=== PATIENT | female | born 1960 | race Caucasian/White ===

== ENCOUNTER 2021-03-18 05:34 | Emergency (ER) | payer MEDICAID, OTHER ==
[2021-03-18] MEDS ORDERED: Sodium Chloride 0.9% 1,000 ML IV ONE (06:06)
[2021-03-18] MEDS ORDERED: LORazepam 2 MG/ML SDV IVPUSH STA (06:06)
--- NOTE | 2021-03-18 06:09 | EDM.PDOC ---
<Chavo Ye - Last Filed: 03/18/21 07:16> ED HPI GENERAL MEDICAL PROBLEM - General Chief Complaint: Abdominal Pain Stated Complaint: [facility] Time Seen by Provider: 03/18/21 05:53 Source of Information: Reports: Patient, RN Notes Reviewed History Limitations: Reports: Altered Mental Status - History of Present Illness INITIAL COMMENTS - FREE TEXT/NARRATIVE: Obtaining a history is not possible, as the patient is both physically and mentally agitated, speaking only a stream of consciousness and not answering any questions directly. I am told that she (or someone) called EMS stating that she was dyspneic with an occasional cough, however, when EMS arrived, she told him that she was having abdominal pain. Here in the ED, she complained of back pain with nausea and dry heaves. When I asked the patient what brings her to the ED, she stated "I was not feeling good", and that she developed diarrhea last night. She related that she is on her 3rd cancer - malignant melanoma, after first having endometrial cancer, followed by colon cancer. She stated that she had 4 feet of her colon removed, and I believe a hysterectomy, but that she has never received chemotherapy, because she refused it. Given her current mental condition, I would not rely on the accuracy of what she is saying at this time, and there are no prior medical records to rely on. At triage, the patient's initial BP was modestly depressed at 105/51. She is afebrile, with an oxygen saturation of 90% on room air. She is physically restless, constantly moving and rubbing or scratching her hands, legs, and scalp. Due to the patient's altered mental status, a PMHx, PSHx, SocHx, and recent ROS is unobtainable. It is unknown if the patient has a PCP or other provider. It is unknown if the patient has received a COVID vaccination or influenza vaccination this season. Back Pain Score (Numeric/FACES): 9 - Related Data Allergies Allergy/AdvReac Type Severity Reaction Status Date / Time aspirin Allergy Anaphylactic Verified 03/18/21 05:46 Shock Home Meds: Home Meds Acetaminophen/oxyCODONE [Percocet 325-10 MG] 1 tab PO TID 03/18/21 [History] Cyclobenzaprine [Flexeril] 10 mg PO TID 03/18/21 [History] Divalproex Sodium [Depakote] 500 mg PO BID 03/18/21 [History] Nitrofurantoin Monohyd/M-Cryst [Macrobid 100 mg Capsule] 100 mg PO BID #10 capsule 03/18/21 [Rx] Oxybutynin Chloride [Oxybutynin Chloride ER] 15 mg PO DAILY 03/18/21 [History] Pregabalin [Lyrica] 150 mg PO DAILY 03/18/21 [History] Promethazine [Phenergan] 25 mg PO Q8H PRN 03/18/21 [History] Propranolol [Inderal LA 24 Hr] 80 mg PO BEDTIME 03/18/21 [History] SUMAtriptan succinate [Imitrex] 4 mg SQ ASDIRECTED 03/18/21 [History] Past Medical History HEENT History: Reports: Other (See Below) (Endentulous) - Past Surgical History HEENT Surgical History: Reports: Oral Surgery (dental extractions) ED ROS GENERAL - Review of Systems Review Of Systems: Unable To Obtain Reason Not Obtained: AMS ED EXAM, GENERAL - Physical Exam Exam: See Below Exam Limited By: Physical Impairment (Mentally and physically agitated) General Appearance: Alert, Thin, Other (Disheveled) Eye Exam: Bilateral Eye: EOMI, Normal Inspection Ears: Normal External Exam, Hearing Grossly Normal Nose: Normal Inspection Throat/Mouth: Normal Inspection, Normal Lips, Normal Voice, No Airway Compromise Head: Atraumatic, Normocephalic Neck: Normal Inspection, Full Range of Motion Respiratory/Chest: No Respiratory Distress, Lungs Clear, Normal Breath Sounds, No Accessory Muscle Use Cardiovascular: Normal Peripheral Pulses, Regular Rate, Rhythm, No Edema, No Gallop, No JVD, No Murmur, No Rub Peripheral Pulses: 2+: Radial (L), Radial (R) GI/Abdominal: Normal Bowel Sounds, Soft, Non-Tender, No Organomegaly, No Distention, No Abnormal Bruit, No Mass Back Exam: Normal Inspection, Full Range of Motion, NT Extremities: Normal Inspection, Normal Range of Motion, No Pedal Edema, Normal Capillary Refill Neurological: Alert, No Motor/Sensory Deficits, Confused Psychiatric: Other (Mentally agitated) Skin Exam: Warm, Dry, Intact, Normal Color, No Rash Course - Re-Assessments/Exams Free Text/Narrative Re-Assessment/Exam: 03/18/21 06:07 The patient's presentation is highly suspicious for drug intoxication, particularly methamphetamine and/or bath salts. I have ordered an extensive work-up that includes numerous blood tests, a urinalysis, a urine drug screen, a swab for the SARS-CoV-2 virus and influenza A + B viruses, a portable chest x- ray, and an ECG. In the meantime, the patient will be treated with IV lorazepam in order to try to settle her down, and a bolus of IV fluid to address her hypotension. 03/18/21 06:43 Notified by Bhakti MATHUR that the IV lorazepam helped to settle the patient down a little bit, although she still took a swing at Kaelyn MATHUR. 03/18/21 06:53 Portable chest radiograph appears to be grossly normal. The cardiac silhouette is within normal limits. No pulmonary vascular congestion. No pleural effusions seen on this AP view. No focal infiltrate. No pneumothorax. Formal read per the Radiologist pending. 03/18/21 07:16 The patient's CBC is unremarkable. Her CMP is remarkable for slight hypokalemia 3.4, and modest hyperglycemia of 145, with the remainder of her CMP being unremarkable. Her magnesium level is within normal limits at 1.8. Her serum ketones are within normal limits at 0.05. Her CRP is undetectably low. Her troponin is undetectably low. Her pro-BNP is mildly elevated at 288. Her D-dimer is elevated at 1.04. Her salicylate level is within normal limits at 1.6. Her acetaminophen level is 0. Her EtOH level is 0.00. Her urinalysis is remarkable for 3+ occult blood with 40-50 RBCs, trace leukocyte esterase with 20-30 WBCs, nitrite positive with many bacteria, and 0-5 squamous epithelial cells. Her urine drug screen is positive for methamphetamine, amphetamine, and marijuana. Results of the patient's lactic acid level, swab for the SARS-CoV-2 virus and influenza A + B viruses, and ECG are still pending. Based on the above, I have ordered a urine culture, and will start the patient on nitrofurantoin. Case discussed with Dr. Aguilar, and care of the patient turned over to him at this time, for change of shift. Departure - Departure Disposition: Home, Self-Care 01 Clinical Impression: COVID-19 UTI (urinary tract infection) Qualifiers: Urinary tract infection type: site unspecified Hematuria presence: without hematuria Qualified Code(s): N39.0 - Urinary tract infection, site not specified - Discharge Information Prescriptions: Nitrofurantoin Monohyd/M-Cryst [Macrobid 100 mg Capsule] 100 mg PO BID #10 capsule Referrals: PCP,None [Primary Care Provider] - Chelsey Rubio MD [Physician] - 1 Week Forms: ED Department Discharge Additional Instructions: Drink plenty of fluids. Take the macrobid 2 times per day for 5 days. Use the inhaler 2 puffs every 6 hours as needed for shortness of breath. Please return if you are worse. Sepsis Event Note (ED) - Evaluation Sepsis Screening Result: No Definite Risk <Endy Aguilar - Last Filed: 03/18/21 09:25> Course - Vital Signs Last Recorded V/S: Last Vital Signs Temp 98.3 F 03/18/21 05:46 Pulse 86 03/18/21 05:46 Resp 20 03/18/21 05:46 BP 105/51 L 03/18/21 05:46 Pulse Ox 90 L 03/18/21 05:46 - Orders/Labs/Meds Orders: Active Orders 24 hr Category Date Time Status EKG Documentation Completion [RC] STAT Care 03/18/21 06:04 Active RT Post Treatment Assessment [RC] Click to Edit Care 03/18/21 08:48 Active RT Pre-Treatment Assessment [RC] Click to Edit Care 03/18/21 08:48 Active Vital Signs [RC] Q15M Care 03/18/21 08:47 Active CULTURE URINE [MREF] Stat Lab 03/18/21 06:20 Received Bamlanivimab 700 mg Med 03/18/21 08:47 Active Etesevimab [Etesevimab (EUA)] 1,400 mg Sodium Chloride 0.9% [Normal Saline] 100 ml IV ONETIME EPINEPHrine [Adrenalin] Med 03/18/21 08:47 Active 0.3 mg IM ASDIRECTED PRN Famotidine [Pepcid] Med 03/18/21 08:47 Active 20 mg IVPUSH ASDIRECTED PRN Sodium Chloride 0.9% [Saline Flush] Med 03/18/21 09:00 Active 30 ml FLUSH ASDIRECTED diphenhydrAMINE [Benadryl] Med 03/18/21 08:47 Active 50 mg IVPUSH ASDIRECTED PRN methylPREDNISolone Sod Succ [Solu-MEDROL] Med 03/18/21 08:47 Active 125 mg IVPUSH ASDIRECTED PRN Medication Orders Diphenhydramine HCl (Diphenhydramine 50 Mg/Ml Sdv) 50 mg IVPUSH ASDIRECTED PRN PRN Reason: hypersensitivity reaction Epinephrine HCl (Epinephrine 1 Mg/Ml Sdv) 0.3 mg IM ASDIRECTED PRN PRN Reason: hypersensitivity reaction Famotidine (Famotidine 20 Mg/2 Ml Sdv) 20 mg IVPUSH ASDIRECTED PRN PRN Reason: hypersensitivity reaction Bamlanivimab 700 mg/Etesevimab 1,400 mg/ Sodium Chloride 160 mls @ 310 mls/hr IV ONETIME ONE Stop: 03/18/21 09:17 Last Admin: 03/18/21 09:11 Dose: 310 mls/hr Documented by: HERMMIC Methylprednisolone Sodium Succinate (Methylprednisolone Sodium Succinate 125 Mg/2 Ml Sdv) 125 mg IVPUSH ASDIRECTED PRN PRN Reason: hypersensitivity reaction Sodium Chloride (Sodium Chloride 0.9% 10 Ml Syringe) 30 ml FLUSH ASDIRECTED [facility] Labs: Laboratory Tests 03/18/21 03/18/21 03/18/21 Range/Units 05:45 05:45 05:45 WBC 6.97 (3.98-10.04) K/mm3 RBC 4.50 (3.98-5.22) M/mm3 Hgb 13.3 (11.2-15.7) gm/dl Hct 41.7 (34.1-44.9) % MCV 92.7 (79.4-94.8) fl MCH 29.6 (25.6-32.2) pg MCHC 31.9 L (32.2-35.5) g/dl RDW Std Deviation 63.7 H (36.4-46.3) fL Plt Count 354 (182-369) K/mm3 MPV 9.8 (9.4-12.3) fl Neutrophils % (Manual) 44 (40-60) % Band Neutrophils % 5 (0-10) % Lymphocytes % (Manual) 47 H (20-40) % Atypical Lymphs % 0 % Monocytes % (Manual) 3 (2-10) % Eosinophils % (Manual) 1 (0.7-5.8) % Basophils % (Manual) 0 L (0.1-1.2) Platelet Estimate Adequate Plt Morphology Comment Normal Hypochromasia 1+ slight Anisocytosis 2+ moderate RBC Morph Comment Abnormal D-Dimer, Quantitative 1.04 H (0.19-0.50) mg/L Sodium 143 (136-145) mEq/L Potassium 3.4 L (3.5-5.1) mEq/L Chloride 106 (98-107) mEq/L Carbon Dioxide 25 (21-32) mEq/L Anion Gap 15.4 H (5-15) BUN 14 (7-18) mg/dL Creatinine 0.8 (0.55-1.02) mg/dL Est Cr Clr Drug Dosing 58.17 mL/min Estimated GFR (MDRD) > 60 (>60) mL/min BUN/Creatinine Ratio 17.5 (14-18) Glucose 145 H (70-99) mg/dL Lactic Acid (0.4-2.0) mmol/L Calcium 9.1 (8.5-10.1) mg/dL Magnesium 1.8 (1.8-2.4) mg/dL Total Bilirubin 0.3 (0.2-1.0) mg/dL AST 11 L (15-37) U/L ALT 12 L (14-59) U/L Alkaline Phosphatase 84 (46-116) U/L Troponin I < 0.017 (0.00-0.056) ng/mL C-Reactive Protein <0.2 (<1.0) mg/dL NT-Pro-B Natriuret Pep (0-125) pg/mL Total Protein 7.5 (6.4-8.2) g/dl Albumin 3.6 (3.4-5.0) g/dl Globulin 3.9 gm/dL Albumin/Globulin Ratio 0.9 L (1-2) Urine Color (Yellow) Urine Appearance (Clear) Urine pH (5.0-8.0) Ur Specific Whitmer (1.005-1.030) Urine Protein (Negative) Urine Glucose (UA) (Negative) Urine Ketones (Negative) Urine Occult Blood (Negative) Urine Nitrite (Negative) Urine Bilirubin (Negative) Urine Urobilinogen (0.2-1.0) Ur Leukocyte Esterase (Negative) U Hyaline Cast (Auto) (0-5) /lpf Urine RBC (0-5) /hpf Urine WBC (0-5) /hpf Ur Squamous Epith Cells (0-5) /hpf Urine Bacteria (FEW) /hpf Urine Mucus (FEW) /hpf Salicylates (2.8-20) mg/dL Urine Opiates Screen (XLFQXB=423) Ur Buprenorphine Scrn (CUTOFF=10) Ur Oxycodone Screen (YXN3UO=183) Urine Methadone Screen (BRSEGL=733) Ur Propoxyphene Screen (VFZEWR=134) Acetaminophen 0 L (10-30) ug/mL Ur Barbiturates Screen (VNHVLO=986) Ur Tricyclics Screen (OQEEOQ=752) Ur Phencyclidine Scrn (CUTOFF=25) Ur Amphetamine Screen (DFTRJM=931) U Methamphetamines Scrn (PDKERP=072) U Benzodiazepines Scrn (VRCPOZ=833) U Cocaine Metab Screen (OCTHDK=081) U Marijuana (THC) Screen (CUTOFF=50) Ethyl Alcohol 0.00 (0.00) gm% Ketones (0.0-0.3) mM SARS-CoV-2 RNA (MORTEZA) (NEGATIVE) 03/18/21 03/18/21 03/18/21 Range/Units 05:45 05:45 05:45 WBC (3.98-10.04) K/mm3 RBC (3.98-5.22) M/mm3 Hgb (11.2-15.7) gm/dl Hct (34.1-44.9) % MCV (79.4-94.8) fl MCH (25.6-32.2) pg MCHC (32.2-35.5) g/dl RDW Std Deviation (36.4-46.3) fL Plt Count (182-369) K/mm3 MPV (9.4-12.3) fl Neutrophils % (Manual) (40-60) % Band Neutrophils % (0-10) % Lymphocytes % (Manual) (20-40) % Atypical Lymphs % % Monocytes % (Manual) (2-10) % Eosinophils % (Manual) (0.7-5.8) % Basophils % (Manual) (0.1-1.2) Platelet Estimate Plt Morphology Comment Hypochromasia Anisocytosis RBC Morph Comment D-Dimer, Quantitative (0.19-0.50) mg/L Sodium (136-145) mEq/L Potassium (3.5-5.1) mEq/L Chloride (98-107) mEq/L Carbon Dioxide (21-32) mEq/L Anion Gap (5-15) BUN (7-18) mg/dL Creatinine (0.55-1.02) mg/dL Est Cr Clr Drug Dosing mL/min Estimated GFR (MDRD) (>60) mL/min BUN/Creatinine Ratio (14-18) Glucose (70-99) mg/dL Lactic Acid (0.4-2.0) mmol/L Calcium (8.5-10.1) mg/dL Magnesium (1.8-2.4) mg/dL Total Bilirubin (0.2-1.0) mg/dL AST (15-37) U/L ALT (14-59) U/L Alkaline Phosphatase (46-116) U/L Troponin I (0.00-0.056) ng/mL C-Reactive Protein (<1.0) mg/dL NT-Pro-B Natriuret Pep 288 H (0-125) pg/mL Total Protein (6.4-8.2) g/dl Albumin (3.4-5.0) g/dl Globulin gm/dL Albumin/Globulin Ratio (1-2) Urine Color (Yellow) Urine Appearance (Clear) Urine pH (5.0-8.0) Ur Specific Whitmer (1.005-1.030) Urine Protein (Negative) Urine Glucose (UA) (Negative) Urine Ketones (Negative) Urine Occult Blood (Negative) Urine Nitrite (Negative) Urine Bilirubin (Negative) Urine Urobilinogen (0.2-1.0) Ur Leukocyte Esterase (Negative) U Hyaline Cast (Auto) (0-5) /lpf Urine RBC (0-5) /hpf Urine WBC (0-5) /hpf Ur Squamous Epith Cells (0-5) /hpf Urine Bacteria (FEW) /hpf Urine Mucus (FEW) /hpf Salicylates 1.6 L (2.8-20) mg/dL Urine Opiates Screen (WYDLPQ=718) Ur Buprenorphine Scrn (CUTOFF=10) Ur Oxycodone Screen (VYK2NX=176) Urine Methadone Screen (BLEPBD=537) Ur Propoxyphene Screen (TIFXOZ=246) Acetaminophen (10-30) ug/mL Ur Barbiturates Screen (UBVAJN=822) Ur Tricyclics Screen (TESAIF=244) Ur Phencyclidine Scrn (CUTOFF=25) Ur Amphetamine Screen (VXVURQ=883) U Methamphetamines Scrn (ZAVJYG=149) U Benzodiazepines Scrn (NCRXOV=649) U Cocaine Metab Screen (WOGHFR=816) U Marijuana (THC) Screen (CUTOFF=50) Ethyl Alcohol (0.00) gm% Ketones 0.05 (0.0-0.3) mM SARS-CoV-2 RNA (MORTEZA) (NEGATIVE) 03/18/21 03/18/21 03/18/21 Range/Units 06:20 06:20 06:25 WBC (3.98-10.04) K/mm3 RBC (3.98-5.22) M/mm3 Hgb (11.2-15.7) gm/dl Hct (34.1-44.9) % MCV (79.4-94.8) fl MCH (25.6-32.2) pg MCHC (32.2-35.5) g/dl RDW Std Deviation (36.4-46.3) fL Plt Count (182-369) K/mm3 MPV (9.4-12.3) fl Neutrophils % (Manual) (40-60) % Band Neutrophils % (0-10) % Lymphocytes % (Manual) (20-40) % Atypical Lymphs % % Monocytes % (Manual) (2-10) % Eosinophils % (Manual) (0.7-5.8) % Basophils % (Manual) (0.1-1.2) Platelet Estimate Plt Morphology Comment Hypochromasia Anisocytosis RBC Morph Comment D-Dimer, Quantitative (0.19-0.50) mg/L Sodium (136-145) mEq/L Potassium (3.5-5.1) mEq/L Chloride (98-107) mEq/L Carbon Dioxide (21-32) mEq/L Anion Gap (5-15) BUN (7-18) mg/dL Creatinine (0.55-1.02) mg/dL Est Cr Clr Drug Dosing mL/min Estimated GFR (MDRD) (>60) mL/min BUN/Creatinine Ratio (14-18) Glucose (70-99) mg/dL Lactic Acid (0.4-2.0) mmol/L Calcium (8.5-10.1) mg/dL Magnesium (1.8-2.4) mg/dL Total Bilirubin (0.2-1.0) mg/dL AST (15-37) U/L ALT (14-59) U/L Alkaline Phosphatase (46-116) U/L Troponin I (0.00-0.056) ng/mL C-Reactive Protein (<1.0) mg/dL NT-Pro-B Natriuret Pep (0-125) pg/mL Total Protein (6.4-8.2) g/dl Albumin (3.4-5.0) g/dl Globulin gm/dL Albumin/Globulin Ratio (1-2) Urine Color Yellow (Yellow) Urine Appearance Cloudy H (Clear) Urine pH 5.5 (5.0-8.0) Ur Specific Whitmer > or = 1.030 (1.005-1.030) Urine Protein 3+ H (Negative) Urine Glucose (UA) Negative (Negative) Urine Ketones Trace H (Negative) Urine Occult Blood 3+ H (Negative) Urine Nitrite Positive H (Negative) Urine Bilirubin 1+ H (Negative) Urine Urobilinogen 0.2 (0.2-1.0) Ur Leukocyte Esterase Trace H (Negative) U Hyaline Cast (Auto) 20-30 H (0-5) /lpf Urine RBC 40-50 H (0-5) /hpf Urine WBC 20-30 H (0-5) /hpf Ur Squamous Epith Cells 0-5 (0-5) /hpf Urine Bacteria Many H (FEW) /hpf Urine Mucus Moderate H (FEW) /hpf Salicylates (2.8-20) mg/dL Urine Opiates Screen Negative (JLVDUN=628) Ur Buprenorphine Scrn Negative (CUTOFF=10) Ur Oxycodone Screen Negative (ZUO3GA=344) Urine Methadone Screen Negative (DLPPMM=745) Ur Propoxyphene Screen Negative (XICPQD=770) Acetaminophen (10-30) ug/mL Ur Barbiturates Screen Negative (BJNOFM=832) Ur Tricyclics Screen Negative (SSAXOI=372) Ur Phencyclidine Scrn Negative (CUTOFF=25) Ur Amphetamine Screen Presumptive positive H (LSPGXC=583) U Methamphetamines Scrn Presumptive positive H (KYJHFY=049) U Benzodiazepines Scrn Negative (ICNBQT=152) U Cocaine Metab Screen Negative (BAXRLB=574) U Marijuana (THC) Screen Presumptive positive H (CUTOFF=50) Ethyl Alcohol (0.00) gm% Ketones (0.0-0.3) mM SARS-CoV-2 RNA (MORTEZA) Positive H (NEGATIVE) 03/18/21 Range/Units 07:00 WBC (3.98-10.04) K/mm3 RBC (3.98-5.22) M/mm3 Hgb (11.2-15.7) gm/dl Hct (34.1-44.9) % MCV (79.4-94.8) fl MCH (25.6-32.2) pg MCHC (32.2-35.5) g/dl RDW Std Deviation (36.4-46.3) fL Plt Count (182-369) K/mm3 MPV (9.4-12.3) fl Neutrophils % (Manual) (40-60) % Band Neutrophils % (0-10) % Lymphocytes % (Manual) (20-40) % Atypical Lymphs % % Monocytes % (Manual) (2-10) % Eosinophils % (Manual) (0.7-5.8) % Basophils % (Manual) (0.1-1.2) Platelet Estimate Plt Morphology Comment Hypochromasia Anisocytosis RBC Morph Comment D-Dimer, Quantitative (0.19-0.50) mg/L Sodium (136-145) mEq/L Potassium (3.5-5.1) mEq/L Chloride (98-107) mEq/L Carbon Dioxide (21-32) mEq/L Anion Gap (5-15) BUN (7-18) mg/dL Creatinine (0.55-1.02) mg/dL Est Cr Clr Drug Dosing mL/min Estimated GFR (MDRD) (>60) mL/min BUN/Creatinine Ratio (14-18) Glucose (70-99) mg/dL Lactic Acid 1.5 (0.4-2.0) mmol/L Calcium (8.5-10.1) mg/dL Magnesium (1.8-2.4) mg/dL Total Bilirubin (0.2-1.0) mg/dL AST (15-37) U/L ALT (14-59) U/L Alkaline Phosphatase (46-116) U/L Troponin I (0.00-0.056) ng/mL C-Reactive Protein (<1.0) mg/dL NT-Pro-B Natriuret Pep (0-125) pg/mL Total Protein (6.4-8.2) g/dl Albumin (3.4-5.0) g/dl Globulin gm/dL Albumin/Globulin Ratio (1-2) Urine Color (Yellow) Urine Appearance (Clear) Urine pH (5.0-8.0) Ur Specific Whitmer (1.005-1.030) Urine Protein (Negative) Urine Glucose (UA) (Negative) Urine Ketones (Negative) Urine Occult Blood (Negative) Urine Nitrite (Negative) Urine Bilirubin (Negative) Urine Urobilinogen (0.2-1.0) Ur Leukocyte Esterase (Negative) U Hyaline Cast (Auto) (0-5) /lpf Urine RBC (0-5) /hpf Urine WBC (0-5) /hpf Ur Squamous Epith Cells (0-5) /hpf Urine Bacteria (FEW) /hpf Urine Mucus (FEW) /hpf Salicylates (2.8-20) mg/dL Urine Opiates Screen (USAQGI=095) Ur Buprenorphine Scrn (CUTOFF=10) Ur Oxycodone Screen (LCM3CI=521) Urine Methadone Screen (HCONLV=068) Ur Propoxyphene Screen (DKMNVH=653) Acetaminophen (10-30) ug/mL Ur Barbiturates Screen (WHXKKC=068) Ur Tricyclics Screen (PAINHY=723) Ur Phencyclidine Scrn (CUTOFF=25) Ur Amphetamine Screen (HCYWDB=719) U Methamphetamines Scrn (PWSPTM=250) U Benzodiazepines Scrn (ULOHNK=342) U Cocaine Metab Screen (EFUZXL=982) U Marijuana (THC) Screen (CUTOFF=50) Ethyl Alcohol (0.00) gm% Ketones (0.0-0.3) mM SARS-CoV-2 RNA (MORTEZA) (NEGATIVE) Meds: Medications Generic Name Dose Route Start Last Admin Trade Name Freq PRN Reason Stop Dose Admin Diphenhydramine HCl 50 mg 03/18/21 08:47 Diphenhydramine 50 Mg/Ml Sdv IVPUSH ASDIRECTED PRN hypersensitivity reaction Epinephrine HCl 0.3 mg 03/18/21 08:47 Epinephrine 1 Mg/Ml Sdv IM ASDIRECTED PRN hypersensitivity reaction Famotidine 20 mg 03/18/21 08:47 Famotidine 20 Mg/2 Ml Sdv IVPUSH ASDIRECTED PRN hypersensitivity reaction Bamlanivimab 700 mg/ 160 mls @ 310 mls/hr 03/18/21 08:47 03/18/21 09:11 Etesevimab 1,400 mg/ Sodium IV 03/18/21 09:17 310 mls/hr Chloride ONETIME ONE Administration Methylprednisolone Sodium Succinate 125 mg 03/18/21 08:47 Methylprednisolone Sodium Succinate 125 Mg/2 Ml Sdv IVPUSH ASDIRECTED PRN hypersensitivity reaction Sodium Chloride 30 ml 03/18/21 09:00 Sodium Chloride 0.9% 10 Ml Syringe FLUSH ASDIRECTED BRIDGETTE Discontinued Medications Generic Name Dose Route Start Last Admin Trade Name Freq PRN Reason Stop Dose Admin Albuterol 0 gm 03/18/21 08:48 Albuterol 6.7 Gm Inhaler INH 03/18/21 08:49 ONETIME ONE Sodium Chloride 1,000 mls @ 999 mls/hr 03/18/21 06:06 03/18/21 06:28 Normal Saline IV 03/18/21 07:06 999 mls/hr ONETIME ONE Administration Lorazepam 1 mg 03/18/21 06:06 03/18/21 06:28 Lorazepam 2 Mg/Ml Sdv IVPUSH 03/18/21 06:07 1 mg ONETIME STA Administration Nitrofurantoin Macrocrystals 100 mg 03/18/21 07:14 03/18/21 07:26 Nitrofurantoin Monohydrate/Macrocrystalline 100 Mg Cap PO 03/18/21 07:15 100 mg ONETIME STA Administration - Re-Assessments/Exams Free Text/Narrative Re-Assessment/Exam: 03/18/21 09:[address] Ye. The patient is alert and making sense. She is COVID 19 positive. She says "that is impossible I got the shot." I informed her that it is possible and usually patient's with the shot do better. I asked her about the positive meth and amphetamine screen. She does not know how that happened. She says there are some add characters in her building and they may have been smoking it. I talked to her about getting the monoclonal antibodies. I spoke with the patient to provide information about monoclonal antibody treatment. I offered them the Patient and Caregiver DARNELL REGEN-COV Fact Sheet to read and review. I stated the drug has been approved by an emergency use authorization (EUA} process and has not fully been FDA reviewed or approved. The patient meets the EUA requirements. I discussed there are other potential treatment options that are currently not FDA approved to treat COVID 19. Offered opportunity to ask questions and all questions were answered. The patient voiced understanding and agreed to proceed with treatment. The patient wanted to go ahead with the monoclonal antibodies. She also asked if she could get an inhaler. Hers ran out. I will also get her on macrobid for ther [place]. Departure - Departure Time of Disposition: 09:50 Condition: Good - Discharge Information *PRESCRIPTION DRUG MONITORING PROGRAM REVIEWED*: Not Applicable *COPY OF PRESCRIPTION DRUG MONITORING REPORT IN PATIENT REINALDO: Not Applicable Sepsis Event Note (ED) - Focused Exam Vital Signs: Vital Signs Temp Pulse Resp BP Pulse Ox 03/18/21 05:46 98.3 F 86 20 105/51 L 90 L - My Orders Last 24 Hours: My Active Orders 03/18/21 08:47 Vital Signs [RC] Q15M Bamlanivimab 700 mg Etesevimab [Etesevimab (EUA)] 1,400 mg Sodium Chloride 0.9% [Normal Saline] 100 ml IV ONETIME EPINEPHrine [Adrenalin] 0.3 mg IM ASDIRECTED PRN Famotidine [Pepcid] 20 mg IVPUSH ASDIRECTED PRN diphenhydrAMINE [Benadryl] 50 mg IVPUSH ASDIRECTED PRN methylPREDNISolone Sod Succ [Solu-MEDROL] 125 mg IVPUSH ASDIRECTED PRN 03/18/21 08:48 RT Post Treatment Assessment [RC] Click to Edit RT Pre-Treatment Assessment [RC] Click to Edit 03/18/21 09:00 Sodium Chloride 0.9% [Saline Flush] 30 ml FLUSH ASDIRECTED - Assessment/Plan Last 24 Hours: My Active Orders 03/18/21 08:47 Vital Signs [RC] Q15M Bamlanivimab 700 mg Etesevimab [Etesevimab (EUA)] 1,400 mg Sodium Chloride 0.9% [Normal Saline] 100 ml IV ONETIME EPINEPHrine [Adrenalin] 0.3 mg IM ASDIRECTED PRN Famotidine [Pepcid] 20 mg IVPUSH ASDIRECTED PRN diphenhydrAMINE [Benadryl] 50 mg IVPUSH ASDIRECTED PRN methylPREDNISolone Sod Succ [Solu-MEDROL] 125 mg IVPUSH ASDIRECTED PRN 03/18/21 08:48 RT Post Treatment Assessment [RC] Click to Edit RT Pre-Treatment Assessment [RC] Click to Edit 03/18/21 09:00 Sodium Chloride 0.9% [Saline Flush] 30 ml FLUSH ASDIRECTED
[2021-03-18 06:42] LABS: ACETAMINOPHEN 0 ug/mL (10-30)
[2021-03-18] MEDS ORDERED: Nitrofurantoin Monohydrate/Macrocrystalline 100 MG Cap PO STA (07:14)
--- NOTE | 2021-03-18 08:24 | CR ---
Chest: Portable view of the chest was obtained. Comparison: No prior chest imaging is available. Heart size and mediastinum are within normal limits. Lungs are clear with no acute parenchymal change. Bony structures show nothing acute. Impression: 1. Nothing acute is seen on portable chest x-ray. Diagnostic code #1
[2021-03-18] MEDS ORDERED: diphenhydrAMINE 50 MG/ML SDV IVPUSH PRN (08:47)
[2021-03-18] MEDS ORDERED: Famotidine 20 MG/2 ML SDV IVPUSH PRN (08:47)
[2021-03-18] MEDS ORDERED: Bamlanivimab 700 MG, ETESEVIMAB 1,400 MG in Sodium Chloride 0.9% 100 ML IV ONE (08:47)
[2021-03-18] MEDS ORDERED: methylPREDNISolone Sodium Succinate 125 MG/2 ML SDV IVPUSH PRN (08:47)
[2021-03-18] MEDS ORDERED: EPINEPHrine 1 MG/ML SDV IM PRN (08:47)
[2021-03-18] MEDS ORDERED: Albuterol 6.7 GM Inhaler INH ONE (08:48)
[2021-03-18] MEDS ORDERED: Sodium Chloride 0.9% 10 ML Syringe FLUSH SCH (09:00)
[2021-03-18] MEDS ORDERED: Ondansetron 4 MG/2 ML SDV IVPUSH ONE (11:15)
[2021-03-18] MEDS ORDERED: Loperamide 2 MG Cap PO ONE (11:15)
[2021-03-18] MEDS: Albuterol 6.7 GM Inhaler INH ONE ×2 (13:27→13:28)
== END 2021-03-18 12:30 | disposition home or self-care (01) ==
LOC: JD.ED 05:34
DX: U07.1 COVID-19 (principal); N39.0 Urinary tract infection, site not specified; Z88.8 Allergy status to other drugs, medicaments and biological substances
CPT/HCPCS: 36415; 71045; 80053; 80143; 80179; 80306; 80307; 81001; 82009; 83605; 83735; 83880; 84484; 85007; 85027; 85379; 86140; 87086; 87088; 87186; 87635; 87804; 96374; 96375; 99285; A9270; J2060; J2405; J7030; M0245; Q0245; U0002

== ENCOUNTER 2021-07-01 21:42 | Emergency (ER) | payer MEDICAID ==
[2021-07-01] MEDS ORDERED: FLU Vacc QS2021-22 36MOS UP/PF 60 MCG/0.5 ML Syringe IM ONE (22:30)
== END 2021-07-02 01:05 | disposition home or self-care (01) ==
LOC: JD.ED 21:42
DX: R04.0 Epistaxis (principal); R60.0 Localized edema; I10 Essential (primary) hypertension; J45.909 Unspecified asthma, uncomplicated; Z79.82 Long term (current) use of aspirin; Z88.0 Allergy status to penicillin; Z88.2 Allergy status to sulfonamides; Z72.0 Tobacco use; Z23 Encounter for immunization
CPT/HCPCS: 36415; 85014; 85018; 90686; 99284-25; G0008

== ENCOUNTER 2022-01-01 20:43 | Emergency (ER) | payer MEDICAID | END 2022-01-01 22:53 | disposition home or self-care (01) | LOC: JD.ED 20:43 | DX: S93.402A Sprain of unspecified ligament of left ankle, initial encounter (principal); I10 Essential (primary) hypertension; Z88.0 Allergy status to penicillin; Z88.2 Allergy status to sulfonamides; Z88.8 Allergy status to other drugs, medicaments and biological substances; W22.09XA Striking against other stationary object, initial encounter | CPT/HCPCS: 73610-26-LT; 73610-LT; 73630-26-LT; 73630-LT; 99282; 99283 ==

== ENCOUNTER 2022-04-24 06:34 | Inpatient (IN) | payer MEDICAID ==
[2022-04-24] MEDS ORDERED: Sodium Chloride 0.9% 10 ML Syringe FLUSH PRN (07:13)
[2022-04-24 07:32] LABS: CORONAVIRUS COVID-19 NAA NEGATIVE (NEGATIVE)
[2022-04-24] MEDS ORDERED: Albuterol/Ipratropium 3.0-0.5 MG/3 ML Neb Soln NEB ONE (07:46)
[2022-04-24] MEDS ORDERED: cefTRIAXone 1 GM in Sodium Chloride 0.9% 100 ML IV ONE (07:59)
[2022-04-24] MEDS ORDERED: Lactated Ringers 1,000 ML IV ONE (08:16)
[2022-04-24] MEDS ORDERED: methylPREDNISolone Sodium Succinate 125 MG/2 ML SDV IVPUSH ONE (09:01)
[2022-04-24] MEDS ORDERED: Lactated Ringers 500 ML IV ONE (09:29)
[2022-04-24] MEDS ORDERED: Lactated Ringers 1,000 ML ONE (09:31)
[2022-04-24] MEDS ORDERED: Lactated Ringers 1,000 ML IV SCH (14:00)
[2022-04-24] MEDS: Albuterol/Ipratropium 3.0-0.5 MG/3 ML Neb Soln NEB SCH ×2 (17:29→23:10)
[2022-04-24] MEDS ORDERED: LORazepam 2 MG/ML SDV IVPUSH ONE (20:33)
[2022-04-24] MEDS ORDERED: Divalproex Sodium Delayed-Release 500 MG Tab.CR PO SCH (21:00)
[2022-04-25] MEDS: HYDROmorphone 0.5 MG/0.5 ML Syringe IVPUSH PRN ×2 (01:53→06:12)
[2022-04-25] MEDS: Albuterol/Ipratropium 3.0-0.5 MG/3 ML Neb Soln NEB SCH ×4 (03:01→13:44)
[2022-04-25] MEDS ORDERED: HYDROmorphone 1 MG/ML Syringe IVPUSH PRN (06:46)
[2022-04-25] MEDS: LORazepam 2 MG/ML SDV IVPUSH PRN ×3 (07:35→23:05)
[2022-04-25] MEDS: methylPREDNISolone Sodium Succinate 125 MG/2 ML SDV IV SCH (08:31)
[2022-04-25] MEDS: cefTRIAXone 2 GM in Sodium Chloride 0.9% 100 ML IV SCH (08:34)
[2022-04-25] MEDS: Enoxaparin 40 MG/0.4 ML Syringe SUBCUT SCH (08:35)
[2022-04-25] MEDS ORDERED: OXYBUTYNIN CHLORIDE 15 MG PO SCH (09:00)
[2022-04-25] MEDS ORDERED: methylPREDNISolone Sod Succ 125 MG in Sodium Chloride 0.9% 250 ML IV SCH (09:00)
[2022-04-25] MEDS: Nicotine 21 MG/24 Hr Patch TRDERM SCH ×2 (14:37→14:38)
[2022-04-25] MEDS ORDERED: Albuterol/Ipratropium 3.0-0.5 MG/3 ML Neb Soln NEB PRN (16:01)
[2022-04-25] MEDS: Divalproex Sodium Delayed-Release 500 MG Tab.CR PO SCH (22:39)
[2022-04-25] MEDS: Morphine 2 MG/ML SYRINGE IVPUSH PRN (23:35)
[2022-04-26] MEDS: Morphine 2 MG/ML SYRINGE IVPUSH PRN ×6 (04:33→23:52)
[2022-04-26] MEDS: LORazepam 2 MG/ML SDV IVPUSH PRN (09:19)
[2022-04-26] MEDS: methylPREDNISolone Sodium Succinate 125 MG/2 ML SDV IV SCH (09:19)
[2022-04-26] MEDS: Divalproex Sodium Delayed-Release 500 MG Tab.CR PO SCH ×3 (09:19→22:39)
[2022-04-26] MEDS: Enoxaparin 40 MG/0.4 ML Syringe SUBCUT SCH (09:19)
[2022-04-26] MEDS: Nicotine 21 MG/24 Hr Patch TRDERM SCH (09:28)
[2022-04-26] MEDS: cefTRIAXone 2 GM in Sodium Chloride 0.9% 100 ML IV SCH (09:31)
[2022-04-26] MEDS: Potassium Chloride 10 MEQ in Premix Bag 1 BAG IV SCH ×4 (13:59→18:56)
[2022-04-26] MEDS ORDERED: Sodium Chloride 0.9% 1,000 ML IV ONE (15:06)
[2022-04-27] MEDS: Morphine 2 MG/ML SYRINGE IVPUSH PRN (05:24)
[2022-04-27] MEDS: Nicotine 21 MG/24 Hr Patch TRDERM SCH (08:24)
[2022-04-27] MEDS: Enoxaparin 40 MG/0.4 ML Syringe SUBCUT SCH (08:25)
[2022-04-27] MEDS: methylPREDNISolone Sodium Succinate 125 MG/2 ML SDV IV SCH (08:25)
[2022-04-27] MEDS: Divalproex Sodium Delayed-Release 500 MG Tab.CR PO SCH (08:26)
[2022-04-27] MEDS: cefTRIAXone 2 GM in Sodium Chloride 0.9% 100 ML IV SCH (08:27)
== END 2022-04-27 12:48 | disposition home or self-care (01) | DRG 871 ==
LOC: JD.ED 06:34 → JD.ICU 14:09 → JD.MS 04-25 10:47
PROVIDERS: ADMIT Internal Medicine; ATTEND Internal Medicine
DX: A41.51 Sepsis due to Escherichia coli [E. coli] (principal); J96.01 Acute respiratory failure with hypoxia; J96.02 Acute respiratory failure with hypercapnia; N39.0 Urinary tract infection, site not specified; J45.909 Unspecified asthma, uncomplicated; J44.1 Chronic obstructive pulmonary disease with (acute) exacerbation; F32.A Depression, unspecified; A41.59 Other Gram-negative sepsis; G40.909 Epilepsy, unspecified, not intractable, without status epilepticus; B96.20 Unspecified Escherichia coli [E. coli] as the cause of diseases classified elsewhere; Z20.822 Contact with and (suspected) exposure to COVID-19; Z88.8 Allergy status to other drugs, medicaments and biological substances; E11.9 Type 2 diabetes mellitus without complications; B96.1 Klebsiella pneumoniae [K. pneumoniae] as the cause of diseases classified elsewhere; F11.90 Opioid use, unspecified, uncomplicated; I95.9 Hypotension, unspecified; J44.9 Chronic obstructive pulmonary disease, unspecified; I10 Essential (primary) hypertension; Z86.16 Personal history of COVID-19; Z90.710 Acquired absence of both cervix and uterus; Z79.899 Other long term (current) drug therapy; Z88.0 Allergy status to penicillin; Z88.2 Allergy status to sulfonamides
CPT/HCPCS: 0241U; 36415; 36600; 51702; 70450; 71045; 80053; 81001; 82803; 82947; 83605; 83880; 84484; 85025; 85027; 85610; 86140; 87040; 87086; 87088; 87186; 93005; 94640; 94660; 94761; 96361; 96365; 96375; 99285; A9270-GY; J0696; J1170; J1650; J2060; J2270; J2930; J3480; J3490; J7030; J7120; J7620-GY

== ENCOUNTER 2022-04-27 22:11 | Inpatient (IN) | payer MEDICAID ==
[2022-04-27] MEDS ORDERED: Sodium Chloride 0.9% 10 ML Syringe FLUSH PRN (22:26)
[2022-04-27] MEDS ORDERED: Ketorolac 15 MG/ML SDV IVPUSH ONE (22:35)
[2022-04-27] MEDS ORDERED: Dextrose 5%-Lactated Ringers 1,000 ML IV SCH (22:45)
[2022-04-27] MEDS ORDERED: Aspirin 81 MG Tab.Chew PO ONE (23:11)
[2022-04-27] MEDS ORDERED: Heparin Sodium 5,000 Units/ML Vial IVPUSH ONE (23:38)
[2022-04-27] MEDS ORDERED: Heparin Sodium/D5W 25,000 UNITS/500 ML BAG IV SCH (23:45)
[2022-04-27] MEDS ORDERED: Nitroglycerin/D5W 25 MG/250 ML BOTTLE IV SCH (23:45)
[2022-04-27] MEDS ORDERED: Morphine 2 MG/ML SYRINGE IVPUSH ONE (23:58)
[2022-04-27] MEDS ORDERED: Metoclopramide 10 MG/2 ML SDV IVPUSH ONE (23:58)
[2022-04-28] MEDS ORDERED: Metoprolol Tartrate 5 MG in Sodium Chloride 0.9% 50 ML IV ONE (01:46)
[2022-04-28] MEDS ORDERED: LORazepam 2 MG/ML SDV IVPUSH ONE (01:47)
[2022-04-28] MEDS ORDERED: Morphine 4 MG/ML Syringe IVPUSH ONE ×2 (01:47→08:32)
[2022-04-28] MEDS ORDERED: Metoprolol Tartrate 5 MG/5 ML SDV ONE (01:53)
[2022-04-28] MEDS ORDERED: Magnesium Sulfate/Water 2 GM in Premix Bag 1 BAG IV ONE (03:02)
[2022-04-28] MEDS ORDERED: Sodium Chloride 0.9% 1,000 ML IV SCH (03:30)
[2022-04-28] MEDS: Potassium Chloride 10 MEQ in Premix Bag 1 BAG IV SCH ×2 (03:31→04:35)
[2022-04-28] MEDS ORDERED: Sodium Chloride 0.9% 10 ML Syringe FLUSH PRN (08:32)
[2022-04-28] MEDS ORDERED: Ondansetron 4 MG/2 ML SDV IV PRN (08:51)
[2022-04-28] MEDS ORDERED: Ondansetron 4 MG Tab.DIS PO PRN (08:51)
[2022-04-28] MEDS ORDERED: Docusate Sodium 100 MG Cap PO PRN (08:51)
[2022-04-28] MEDS ORDERED: Acetaminophen 325 MG Tab PO PRN (08:51)
[2022-04-28] MEDS ORDERED: Isosorbide Mononitrate 30 MG Tab.ER PO SCH (09:00)
[2022-04-28] MEDS ORDERED: SUMAtriptan 50 MG Tab PO PRN (09:48)
[2022-04-28] MEDS ORDERED: Atropine/Diphenoxylate 0.025-2.5 MG Tab PO PRN ×2 (09:48→10:04)
[2022-04-28] MEDS ORDERED: Promethazine 25 MG Tab PO PRN (09:48)
[2022-04-28] MEDS: Morphine 2 MG/ML SYRINGE IVPUSH PRN ×4 (10:50→20:41)
[2022-04-28] MEDS: Isosorbide Mononitrate 30 MG Tab.ER PO SCH (11:46)
[2022-04-28] MEDS ORDERED: Heparin Sodium 5,000 Units/ML Vial IVPUSH ONE (14:00)
[2022-04-28] MEDS: Heparin Sodium/D5W 25,000 UNITS/500 ML BAG IV SCH (14:11)
[2022-04-28] MEDS ORDERED: Non-Formulary Medication 1 Each (Pregabalin 150 MG Capsule) PO SCH (15:00)
[2022-04-28] MEDS ORDERED: Divalproex Sodium Delayed-Release 500 MG Tab.CR PO SCH (15:00)
[2022-04-28] MEDS: Pregabalin 75 MG Cap PO SCH ×2 (16:15→20:40)
[2022-04-28] MEDS: Divalproex Sodium Delayed-Release 500 MG Tab.CR PO SCH ×2 (16:15→20:39)
[2022-04-28] MEDS: Formoterol/Mometasone 200-5 MCG 8.8 GM Inhaler IH SCH (20:40)
[2022-04-28] MEDS: atorvaSTATin 20 MG Tab PO SCH (20:40)
[2022-04-28] MEDS: Lacosamide 100 MG Tab PO SCH (20:50)
[2022-04-28] MEDS ORDERED: Non-Formulary Medication 1 Each (Atorvastatin 10 MG Tablet) PO SCH (21:00)
[2022-04-28] MEDS ORDERED: Non-Formulary Medication 1 Each (Budesonide/Formoterol 6 GM Inhaler) PO SCH (21:00)
[2022-04-28] MEDS ORDERED: Lacosamide 100 MG Tab PO SCH (21:00)
[2022-04-28] MEDS ORDERED: OXYBUTYNIN CHLORIDE 15 MG PO SCH (21:00)
[2022-04-29] MEDS: Morphine 2 MG/ML SYRINGE IVPUSH PRN ×2 (04:46→08:15)
[2022-04-29] MEDS: Pregabalin 75 MG Cap PO SCH ×3 (08:14→21:30)
[2022-04-29] MEDS: Divalproex Sodium Delayed-Release 500 MG Tab.CR PO SCH ×3 (08:14→21:29)
[2022-04-29] MEDS: Levofloxacin 500 MG Tab PO SCH (08:14)
[2022-04-29] MEDS: Cetirizine 10 MG Tab PO SCH (08:15)
[2022-04-29] MEDS: Lacosamide 100 MG Tab PO SCH ×2 (08:15→21:31)
[2022-04-29] MEDS: Isosorbide Mononitrate 30 MG Tab.ER PO SCH (08:15)
[2022-04-29] MEDS: Propranolol 40 MG Tab PO SCH (08:16)
[2022-04-29] MEDS: Formoterol/Mometasone 200-5 MCG 8.8 GM Inhaler IH SCH ×2 (08:23→20:14)
[2022-04-29] MEDS ORDERED: PROPRANOLOL HCL 80 MG PO SCH (09:00)
[2022-04-29] MEDS ORDERED: Cetirizine 10 MG Tab PO SCH (09:00)
[2022-04-29] MEDS: Heparin Sodium/D5W 25,000 UNITS/500 ML BAG IV SCH (10:46)
[2022-04-29] MEDS: SUMAtriptan 50 MG Tab PO PRN (14:48)
[2022-04-29] MEDS: Acetaminophen/oxyCODONE 325-5 MG Tab PO PRN ×2 (16:41→21:34)
[2022-04-29] MEDS: Cyclobenzaprine 10 MG Tab PO SCH (21:27)
[2022-04-29] MEDS: atorvaSTATin 20 MG Tab PO SCH (21:29)
[2022-04-30] MEDS: Acetaminophen/oxyCODONE 325-5 MG Tab PO PRN ×3 (04:56→21:40)
[2022-04-30] MEDS: Formoterol/Mometasone 200-5 MCG 8.8 GM Inhaler IH SCH ×2 (08:31→20:20)
[2022-04-30] MEDS: Propranolol 40 MG Tab PO SCH ×2 (08:40→09:15)
[2022-04-30] MEDS: Cetirizine 10 MG Tab PO SCH (08:41)
[2022-04-30] MEDS: Levofloxacin 500 MG Tab PO SCH (08:41)
[2022-04-30] MEDS: Cyclobenzaprine 10 MG Tab PO SCH ×3 (08:42→21:38)
[2022-04-30] MEDS: Pregabalin 75 MG Cap PO SCH ×3 (08:44→21:36)
[2022-04-30] MEDS: Divalproex Sodium Delayed-Release 500 MG Tab.CR PO SCH ×3 (08:44→21:40)
[2022-04-30] MEDS: Lacosamide 100 MG Tab PO SCH ×2 (08:45→21:35)
[2022-04-30] MEDS: Isosorbide Mononitrate 30 MG Tab.ER PO SCH (09:13)
[2022-04-30] MEDS: SUMAtriptan 50 MG Tab PO PRN ×2 (15:10→15:45)
[2022-04-30] MEDS: atorvaSTATin 20 MG Tab PO SCH (21:37)
[2022-05-01] MEDS: Acetaminophen/oxyCODONE 325-5 MG Tab PO PRN ×3 (09:20→20:42)
[2022-05-01] MEDS: Cyclobenzaprine 10 MG Tab PO SCH ×3 (09:56→20:35)
[2022-05-01] MEDS: Formoterol/Mometasone 200-5 MCG 8.8 GM Inhaler IH SCH ×2 (09:56→20:46)
[2022-05-01] MEDS: Divalproex Sodium Delayed-Release 500 MG Tab.CR PO SCH ×3 (09:57→20:42)
[2022-05-01] MEDS: Pregabalin 75 MG Cap PO SCH ×3 (09:58→20:34)
[2022-05-01] MEDS: Cetirizine 10 MG Tab PO SCH (09:58)
[2022-05-01] MEDS: Levofloxacin 500 MG Tab PO SCH (09:58)
[2022-05-01] MEDS: Isosorbide Mononitrate 30 MG Tab.ER PO SCH (10:06)
[2022-05-01] MEDS: Propranolol 40 MG Tab PO SCH (10:07)
[2022-05-01] MEDS: Lacosamide 100 MG Tab PO SCH ×2 (10:13→20:43)
[2022-05-01] MEDS: Heparin Sodium 5,000 Units/ML Vial SUBCUT SCH ×2 (12:38→20:33)
[2022-05-01] MEDS: Oxybutynin 5 MG Tab.ER PO SCH (13:24)
[2022-05-01] MEDS: OXYBUTYNIN CHLORIDE 15 MG PO SCH ×2 (14:13→18:14)
[2022-05-01] MEDS: atorvaSTATin 20 MG Tab PO SCH (20:34)
[2022-05-02] MEDS: Heparin Sodium 5,000 Units/ML Vial SUBCUT SCH ×2 (04:48→14:43)
[2022-05-02] MEDS: Pregabalin 75 MG Cap PO SCH (08:27)
[2022-05-02] MEDS: Divalproex Sodium Delayed-Release 500 MG Tab.CR PO SCH (08:27)
[2022-05-02] MEDS: Oxybutynin 5 MG Tab.ER PO SCH (08:27)
[2022-05-02] MEDS: Propranolol 40 MG Tab PO SCH (08:28)
[2022-05-02] MEDS: Cetirizine 10 MG Tab PO SCH (08:28)
[2022-05-02] MEDS: Isosorbide Mononitrate 30 MG Tab.ER PO SCH (08:28)
[2022-05-02] MEDS: Cyclobenzaprine 10 MG Tab PO SCH (08:28)
[2022-05-02] MEDS: Acetaminophen/oxyCODONE 325-5 MG Tab PO PRN ×2 (08:35→13:36)
[2022-05-02] MEDS: Lacosamide 100 MG Tab PO SCH (08:59)
[2022-05-02] MEDS: Formoterol/Mometasone 200-5 MCG 8.8 GM Inhaler IH SCH (09:09)
== END 2022-05-02 14:04 | disposition home or self-care (01) | DRG 282 ==
LOC: JD.ED 22:11 → JD.MS 04-28 08:42 → JD.OB 04-29 19:35 → JD.MS 05-01 10:24
PROVIDERS: ADMIT Hospitalist; ATTEND Hospitalist
PROC: 3E033XZ Introduction of Vasopressor into Peripheral Vein, Percutaneous Approach (ICD-10-PCS; principal; 2022-04-28)
DX: I21.4 Non-ST elevation (NSTEMI) myocardial infarction (principal); R07.89 Other chest pain; I21.A1 Myocardial infarction type 2; J43.2 Centrilobular emphysema; I10 Essential (primary) hypertension; F17.210 Nicotine dependence, cigarettes, uncomplicated; G40.909 Epilepsy, unspecified, not intractable, without status epilepticus; K52.9 Noninfective gastroenteritis and colitis, unspecified; M79.7 Fibromyalgia; F32.A Depression, unspecified; G89.4 Chronic pain syndrome; E11.9 Type 2 diabetes mellitus without complications; Z85.038 Personal history of other malignant neoplasm of large intestine; Z88.8 Allergy status to other drugs, medicaments and biological substances; Z88.6 Allergy status to analgesic agent; Z88.5 Allergy status to narcotic agent; Z88.0 Allergy status to penicillin; Z88.2 Allergy status to sulfonamides; Z79.899 Other long term (current) drug therapy; I25.2 Old myocardial infarction; Z86.16 Personal history of COVID-19; Z98.890 Other specified postprocedural states; Z90.89 Acquired absence of other organs; Z90.710 Acquired absence of both cervix and uterus; Z87.440 Personal history of urinary (tract) infections
CPT/HCPCS: 36415 ×2; 71045; 80053; 80164; 82553; 83735; 83880; 84484 ×3; 85025; 85379; 85610; 85730; 86140; 93005 ×2; J1644 ×2; J1885; J2060; J2270 ×3; J2765; J3475; J3480 ×2; J3490 ×3; J7030; J7121; 80048; 93307; 94640; 94760; 94761; 97110-GP; 97161-GP; A9270-GY; G0008

== ENCOUNTER 2022-05-16 04:48 | Emergency (ER) | payer MEDICAID ==
[2022-05-16] MEDS ORDERED: Albuterol/Ipratropium 3.0-0.5 MG/3 ML Neb Soln NEB ONE (05:00)
[2022-05-16] MEDS ORDERED: methylPREDNISolone Sodium Succinate 125 MG/2 ML SDV IVPUSH ONE (05:00)
[2022-05-16] MEDS ORDERED: Sodium Chloride 0.9% 1,000 ML IV ONE (05:04)
[2022-05-16] MEDS ORDERED: Albuterol/Ipratropium 3.0-0.5 MG/3 ML Neb Soln ONE (05:11)
[2022-05-16] MEDS ORDERED: Magnesium Oxide 400 MG Tab PO ONE (06:10)
== END 2022-05-16 06:38 | disposition home or self-care (01) ==
LOC: JD.ED 04:48
DX: J44.1 Chronic obstructive pulmonary disease with (acute) exacerbation (principal); I25.2 Old myocardial infarction; I10 Essential (primary) hypertension; J44.9 Chronic obstructive pulmonary disease, unspecified; E11.9 Type 2 diabetes mellitus without complications; Z88.5 Allergy status to narcotic agent; Z88.2 Allergy status to sulfonamides; Z88.0 Allergy status to penicillin; Z88.8 Allergy status to other drugs, medicaments and biological substances; Z79.899 Other long term (current) drug therapy; Z86.16 Personal history of COVID-19
CPT/HCPCS: 36415; 71045; 80053; 83690; 83735; 83880; 84484; 85025; 93005; 94640; 96361; 96374; 99285; A9270; J2930; J7030; J7620-GY

== ENCOUNTER 2022-05-17 16:03 | Emergency (ER) | payer MEDICAID ==
[2022-05-17] MEDS ORDERED: Albuterol/Ipratropium 3.0-0.5 MG/3 ML Neb Soln NEB ONE (17:51)
== END 2022-05-17 18:52 | disposition home or self-care (01) ==
LOC: JD.ED 16:03
DX: J44.1 Chronic obstructive pulmonary disease with (acute) exacerbation (principal); I10 Essential (primary) hypertension; I25.2 Old myocardial infarction; E11.9 Type 2 diabetes mellitus without complications; Z79.899 Other long term (current) drug therapy; Z88.0 Allergy status to penicillin; Z88.2 Allergy status to sulfonamides; Z88.5 Allergy status to narcotic agent
CPT/HCPCS: 94640; 99284; J7620-GY

== ENCOUNTER 2022-06-06 15:12 | Emergency (ER) | payer MEDICAID ==
[2022-06-06] MEDS ORDERED: Albuterol/Ipratropium 3.0-0.5 MG/3 ML Neb Soln NEB PRN (15:42)
[2022-06-06] MEDS ORDERED: Ketorolac 30 MG/ML SDV IVPUSH SCH (15:45)
[2022-06-06] MEDS ORDERED: Dextrose 5%-0.9% NaCl 1,000 ML IV SCH (15:45)
[2022-06-06 16:30] LABS: HEMOGLOBIN A1C 6.1 %
[2022-06-06 16:45] LABS: CORONAVIRUS COVID-19 NAA NEGATIVE (NEGATIVE); ESTIMATED GFR 98 mL/min (>60)
[2022-06-06] MEDS ORDERED: Levofloxacin/Dextrose 5%-Water 750 MG in Premix Bag 1 BAG IV ONE (17:22)
== END 2022-06-06 19:30 | disposition home or self-care (01) ==
LOC: JD.ED 15:12
DX: J44.1 Chronic obstructive pulmonary disease with (acute) exacerbation (principal); N39.0 Urinary tract infection, site not specified; I10 Essential (primary) hypertension; I25.2 Old myocardial infarction; E11.9 Type 2 diabetes mellitus without complications; Z88.8 Allergy status to other drugs, medicaments and biological substances; Z88.5 Allergy status to narcotic agent; Z88.0 Allergy status to penicillin; Z88.2 Allergy status to sulfonamides; Z79.899 Other long term (current) drug therapy; Z20.822 Contact with and (suspected) exposure to COVID-19
CPT/HCPCS: 0241U; 36415; 71045; 80053; 80164; 81001; 82553; 83036; 83605; 83735; 83880; 84484; 85025; 86140; 87086; 93005; 96361; 96365; 96366; 96375; 99285; J1885; J1956; J7042

== ENCOUNTER 2023-02-04 09:40 | Day surgery (SDC) | payer MEDICAID ==
[~2023-02-04 09:40] MED LIST: Cefuroxime 10 MG/ML SYRINGE EYERT SCH; Lidocaine 1% PF 2 ML SDV INJECT SCH; Pilocarpine 4% Ophth Soln 15 ML Bot EYERT SCH
[2023-02-04] MEDS: Ofloxacin 0.3% Ophth Soln 5 ML Bottle EYERT SCH ×3 (10:20→11:42)
[2023-02-04] MEDS: Brimonidine 0.2% Ophth Soln 5 ML Bottle EYERT SCH ×3 (10:24→11:42)
[2023-02-04] MEDS: Phenylephrine 2.5% Ophth Soln 2 ML Bot EYERT SCH ×5 (10:28→11:23)
[2023-02-04] MEDS: Tropicamide 1% Ophth Soln 3 ML Bottle EYERT SCH ×4 (10:34→11:05)
[2023-02-04] MEDS: Tetracaine HCl/PF 0.5% 4 ML Bottle EYEBOTH SCH ×5 (10:34→11:31)
== END 2023-02-04 12:05 | disposition home or self-care (01) ==
LOC: JD.SDS 09:40
PROVIDERS: ATTEND Ophthalmology
DX: E11.36 Type 2 diabetes mellitus with diabetic cataract (principal); H25.813 Combined forms of age-related cataract, bilateral; H16.103 Unspecified superficial keratitis, bilateral; H16.223 Keratoconjunctivitis sicca, not specified as Sjogren's, bilateral; H02.834 Dermatochalasis of left upper eyelid; H02.831 Dermatochalasis of right upper eyelid; H57.813 Brow ptosis, bilateral; M79.7 Fibromyalgia; J44.9 Chronic obstructive pulmonary disease, unspecified; E78.00 Pure hypercholesterolemia, unspecified; F41.9 Anxiety disorder, unspecified; F32.A Depression, unspecified; I25.2 Old myocardial infarction; I10 Essential (primary) hypertension; C54.1 Malignant neoplasm of endometrium; C43.9 Malignant melanoma of skin, unspecified; Z83.518 Family history of other specified eye disorder; Z88.0 Allergy status to penicillin; Z88.8 Allergy status to other drugs, medicaments and biological substances; Z91.040 Latex allergy status; Z88.2 Allergy status to sulfonamides; Z79.899 Other long term (current) drug therapy
CPT/HCPCS: 66984; A9270; J0697; 00142; J3490; V2788-GY

== ENCOUNTER 2023-03-04 11:00 | Day surgery (SDC) | payer MEDICAID ==
[2023-03-04] MEDS: Ofloxacin 0.3% Ophth Soln 5 ML Bottle EYELF SCH ×3 (09:28→10:48)
[2023-03-04] MEDS: Brimonidine 0.2% Ophth Soln 5 ML Bottle EYELF SCH ×3 (09:31→10:48)
[2023-03-04] MEDS: Phenylephrine 2.5% Ophth Soln 2 ML Bot EYELF SCH ×5 (09:35→10:20)
[2023-03-04] MEDS: Tropicamide 1% Ophth Soln 3 ML Bottle EYELF SCH ×4 (09:39→10:04)
[2023-03-04] MEDS: Tetracaine HCl/PF 0.5% 4 ML Bottle EYEBOTH SCH ×4 (10:12→10:30)
[~2023-03-04 11:00] MED LIST changes: +Cefuroxime 10 MG/ML SYRINGE EYELF SCH; -Cefuroxime 10 MG/ML SYRINGE EYERT SCH; +Pilocarpine 4% Ophth Soln 15 ML Bot EYELF SCH; -Pilocarpine 4% Ophth Soln 15 ML Bot EYERT SCH; +Polymyxin B/Trimethoprim 10 ML Bottle EYELF SCH
== END 2023-03-04 11:10 ==
LOC: JD.SDS 11:00
PROVIDERS: ATTEND Ophthalmology
DX: E11.36 Type 2 diabetes mellitus with diabetic cataract (principal); H25.812 Combined forms of age-related cataract, left eye; H16.103 Unspecified superficial keratitis, bilateral; H16.223 Keratoconjunctivitis sicca, not specified as Sjogren's, bilateral; H02.834 Dermatochalasis of left upper eyelid; H02.831 Dermatochalasis of right upper eyelid; H57.813 Brow ptosis, bilateral; F41.9 Anxiety disorder, unspecified; F32.A Depression, unspecified; E78.00 Pure hypercholesterolemia, unspecified; I10 Essential (primary) hypertension; I21.9 Acute myocardial infarction, unspecified; M19.90 Unspecified osteoarthritis, unspecified site; F17.200 Nicotine dependence, unspecified, uncomplicated; Z98.41 Cataract extraction status, right eye; Z96.1 Presence of intraocular lens; Z83.518 Family history of other specified eye disorder; Z88.0 Allergy status to penicillin; Z88.8 Allergy status to other drugs, medicaments and biological substances; Z91.040 Latex allergy status; Z88.2 Allergy status to sulfonamides
CPT/HCPCS: 66984; A9270; C1780; J0697; J3490

== ENCOUNTER 2023-10-27 14:33 | Emergency (ER) | payer MEDICAID | END 2023-10-27 17:40 | disposition home or self-care (01) | LOC: JD.ED 14:33 | DX: S62.644A Nondisplaced fracture of proximal phalanx of right ring finger, initial encounter for closed fracture (principal); I10 Essential (primary) hypertension; E78.00 Pure hypercholesterolemia, unspecified; F17.210 Nicotine dependence, cigarettes, uncomplicated; I25.2 Old myocardial infarction; J44.9 Chronic obstructive pulmonary disease, unspecified; E11.9 Type 2 diabetes mellitus without complications; Z86.16 Personal history of COVID-19; Z90.710 Acquired absence of both cervix and uterus; Z90.49 Acquired absence of other specified parts of digestive tract; Z88.0 Allergy status to penicillin; Z88.2 Allergy status to sulfonamides; Z88.5 Allergy status to narcotic agent; Z88.6 Allergy status to analgesic agent; Z91.048 Other nonmedicinal substance allergy status; X50.1XXA Overexertion from prolonged static or awkward postures, initial encounter | CPT/HCPCS: 29125; 73130-26-RT; 73130-RT; 99283-25 ==

== ENCOUNTER 2023-12-13 18:20 | Emergency (ER) | payer MEDICAID | END 2023-12-13 20:00 | disposition left against medical advice (07) | LOC: JD.ED 18:20 | DX: Z53.21 Procedure and treatment not carried out due to patient leaving prior to being seen by health care provider (principal) ==

== ENCOUNTER 2024-03-09 09:11 | Emergency (ER) | payer MEDICAID ==
[2024-03-09] MEDS: Albuterol/Ipratropium 3.0-0.5 MG/3 ML Neb Soln NEB ONE ×2 (09:56→12:10)
[2024-03-09] MEDS: Sodium Chloride 0.9% 10 ML Syringe FLUSH PRN (10:00)
[2024-03-09 10:08] LABS: BASOPHILS ABSOLUTE AUTO 0.1 K/mm3 (0.0-0.2); BASOPHILS PERCENT AUTO 0.7 % (0.0-1.0); EOSINOPHILS ABSOLUTE AUTO 0.5 K/mm3 (0.0-0.4); HEMATOCRIT 40.1 % (37.0-47.0); HEMOGLOBIN 13.2 gm/dl (12.0-16.0); IMMATURE GRAN ABSOLUTE AUTO 0.03 K/mm3 (0.00-0.05); IMMATURE GRAN PERCENT AUTO 0.4 % (0.0-0.4); LYMPHOCYTES ABSOLUTE AUTO 2.5 K/mm3 (1.0-4.8); LYMPHOCYTES PERCENT AUTO 34.1 % (24.0-44.0); MEAN CORPUSCULAR HEMOGLOBIN 29.3 pg (28.0-32.0); MEAN CORPUSCULAR HGB CONC 32.9 g/dl (32.0-36.0); MEAN CORPUSCULAR VOLUME 89.1 fl (83.0-99.0); MEAN PLATELET VOLUME 9.1 fl (9.4-12.3); MONOCYTES ABSOLUTE AUTO 0.5 K/mm3 (0.0-0.8); MONOCYTES PERCENT AUTO 6.9 % (0.0-8.0); NEUTROPHILS ABSOLUTE AUTO 3.9 K/mm3 (1.8-7.7); NEUTROPHILS PERCENT AUTO 51.9 % (41.0-71.0); PLATELET COUNT,PLT 313 K/mm3 (150-400); WHITE BLOOD CELL COUNT,WBC 7.44 K/mm3 (3.9-11.3)
[2024-03-09] MEDS: methylPREDNISolone Sodium Succinate 125 MG/2 ML SDV IVPUSH ONE (10:20)
[2024-03-09 10:48] LABS: A/G RATIO 0.9 (1-2); ALBUMIN 3.2 g/dl (3.4-5.0); ANION GAP 9.5 (5-15); BILIRUBIN TOTAL 0.2 mg/dL (0.2-1.0); BUN/CREATININE RATIO 11.7 (14-18); C-REACTIVE PROTEIN 1.19 mg/dL (<0.30); CALCIUM 9.3 mg/dL (8.5-10.1); CREATININE 0.6 mg/dL (0.55-1.02); EST CRCL DRUG DOSING (CG) 71.22 mL/min; MAGNESIUM 1.7 mg/dL (1.8-2.4); POTASSIUM,K 3.5 mEq/L (3.5-5.1); PROTEIN TOTAL,TP 6.8 g/dl (6.4-8.2)
[2024-03-09] MEDS: fentaNYL 100 MCG/2 ML SDV IVPUSH ONE (10:58)
== END 2024-03-09 15:40 | disposition home or self-care (01) ==
LOC: JD.ED 09:11
DX: J44.1 Chronic obstructive pulmonary disease with (acute) exacerbation (principal); I10 Essential (primary) hypertension; J44.89 Other specified chronic obstructive pulmonary disease; I25.2 Old myocardial infarction; E11.9 Type 2 diabetes mellitus without complications; F17.210 Nicotine dependence, cigarettes, uncomplicated; Z88.2 Allergy status to sulfonamides; Z88.8 Allergy status to other drugs, medicaments and biological substances; Z91.048 Other nonmedicinal substance allergy status; Z79.899 Other long term (current) drug therapy; Z86.16 Personal history of COVID-19; Z90.710 Acquired absence of both cervix and uterus
CPT/HCPCS: 36415; 71045; 80053; 83735; 83880; 84484; 85025; 86140; 93005; 94640; 96374; 96375; 99285; J2919; J3010; J3490; J7620-GY

== ENCOUNTER 2024-04-26 18:32 | Emergency (ER) | payer MEDICAID ==
[2024-04-26 19:01] LABS: BASOPHILS PERCENT AUTO 0.6 % (0.0-1.0); EOSINOPHILS ABSOLUTE AUTO 0.6 K/mm3 (0.0-0.4); EOSINOPHILS PERCENT AUTO 9.2 % (0.0-6.0); HEMATOCRIT 39.1 % (37.0-47.0); HEMOGLOBIN 13.5 gm/dl (12.0-16.0); IMMATURE GRAN ABSOLUTE AUTO 0.01 K/mm3 (0.00-0.05); IMMATURE GRAN PERCENT AUTO 0.1 % (0.0-0.4); LYMPHOCYTES ABSOLUTE AUTO 1.9 K/mm3 (1.0-4.8); LYMPHOCYTES PERCENT AUTO 27.1 % (24.0-44.0); MEAN CORPUSCULAR HEMOGLOBIN 29.3 pg (28.0-32.0); MEAN CORPUSCULAR HGB CONC 34.5 g/dl (32.0-36.0); MEAN CORPUSCULAR VOLUME 84.8 fl (83.0-99.0); MEAN PLATELET VOLUME 10.5 fl (9.4-12.3); MONOCYTES ABSOLUTE AUTO 0.4 K/mm3 (0.0-0.8); MONOCYTES PERCENT AUTO 6.5 % (0.0-8.0); NEUTROPHILS ABSOLUTE AUTO 3.9 K/mm3 (1.8-7.7); NEUTROPHILS PERCENT AUTO 56.5 % (41.0-71.0); PLATELET COUNT,PLT 171 K/mm3 (150-400); RED BLOOD CELL COUNT 4.61 M/mm3 (4.10-5.30); WHITE BLOOD CELL COUNT,WBC 6.82 K/mm3 (3.9-11.3)
[2024-04-26 19:13] LABS: A/G RATIO 0.8 (1-2); ALANINE AMINOTRANSFERASE,ALT 14 U/L (14-59); ALBUMIN 2.5 g/dl (3.4-5.0); ALKALINE PHOSPHATASE 85 U/L (46-116); ANION GAP 11.8 (5-15); ASPARTATE AMNIOTRANSFERASE,AST 15 U/L (15-37); BILIRUBIN TOTAL 0.3 mg/dL (0.2-1.0); BLOOD UREA NITROGEN,BUN 8 mg/dL (7-18); BUN/CREATININE RATIO 13.3 (14-18); C-REACTIVE PROTEIN 0.34 mg/dL (<0.30); CALCIUM 8.5 mg/dL (8.5-10.1); CARBON DIOXIDE,CO2 31 mEq/L (21-32); CHLORIDE,CL 104 mEq/L (98-107); CREATININE 0.6 mg/dL (0.55-1.02); ESTIMATED GFR 100 mL/min (>60); GLUCOSE RANDOM 129 mg/dL (70-99); MAGNESIUM 1.4 mg/dL (1.8-2.4); POTASSIUM,K 3.8 mEq/L (3.5-5.1); PROTEIN TOTAL,TP 5.6 g/dl (6.4-8.2); SODIUM,NA 143 mEq/L (136-145)
[2024-04-26] MEDS: Albuterol/Ipratropium 3.0-0.5 MG/3 ML Neb Soln NEB ONE (19:51)
[2024-04-26] MEDS: methylPREDNISolone Sodium Succinate 125 MG/2 ML SDV IVPUSH ONE (20:38)
== END 2024-04-26 20:49 | disposition home or self-care (01) ==
LOC: JD.ED 18:32
DX: J44.1 Chronic obstructive pulmonary disease with (acute) exacerbation (principal); I10 Essential (primary) hypertension; I25.2 Old myocardial infarction; E78.00 Pure hypercholesterolemia, unspecified; E11.9 Type 2 diabetes mellitus without complications; F17.210 Nicotine dependence, cigarettes, uncomplicated; Z86.16 Personal history of COVID-19; Z90.710 Acquired absence of both cervix and uterus; Z79.899 Other long term (current) drug therapy; Z79.51 Long term (current) use of inhaled steroids; Z88.0 Allergy status to penicillin; Z88.2 Allergy status to sulfonamides; Z91.048 Other nonmedicinal substance allergy status; Z88.5 Allergy status to narcotic agent; Z88.6 Allergy status to analgesic agent
CPT/HCPCS: 36415; 71045; 80053; 83735; 83880; 85025; 86140; 93005; 94640; 96374; 99285; J2919; J7620-GY

== ENCOUNTER 2025-01-05 12:57 | Emergency (ER) | payer MEDICAID ==
[2025-01-05] MEDS ORDERED: Sodium Chloride 0.9% 10 ML Syringe FLUSH PRN (13:08)
[2025-01-05] MEDS: LORazepam 2 MG/ML SDV IVPUSH ONE (13:21)
[2025-01-05 13:31] LABS: BASOPHILS ABSOLUTE AUTO 0.1 K/mm3 (0.0-0.2); BASOPHILS PERCENT AUTO 0.6 % (0.0-1.0); EOSINOPHILS ABSOLUTE AUTO 0.4 K/mm3 (0.0-0.4); EOSINOPHILS PERCENT AUTO 4.0 % (0.0-6.0); IMMATURE GRAN ABSOLUTE AUTO 0.02 K/mm3 (0.00-0.05); IMMATURE GRAN PERCENT AUTO 0.2 % (0.0-0.4); LYMPHOCYTES ABSOLUTE AUTO 1.4 K/mm3 (1.0-4.8); LYMPHOCYTES PERCENT AUTO 15.4 % (24.0-44.0); MEAN PLATELET VOLUME 8.4 fl (9.4-12.3); MONOCYTES ABSOLUTE AUTO 0.5 K/mm3 (0.0-0.8); MONOCYTES PERCENT AUTO 5.1 % (0.0-8.0); NEUTROPHILS ABSOLUTE AUTO 6.5 K/mm3 (1.8-7.7); NEUTROPHILS PERCENT AUTO 74.7 % (41.0-71.0); NRBC ABSOLUTE 0.00 (0.00-0.02); NRBC PERCENT 0.0 % (0.0-0.2); PLATELET COUNT,PLT 363 K/mm3 (150-400); RED BLOOD CELL COUNT 4.95 M/mm3 (4.10-5.30); WHITE BLOOD CELL COUNT,WBC 8.76 K/mm3 (3.9-11.3)
[2025-01-05 14:02] LABS: A/G RATIO 1.1 (1-2); ALANINE AMINOTRANSFERASE,ALT 16.0 U/L (14-59); ASPARTATE AMNIOTRANSFERASE,AST 21.0 U/L (15-37); BILIRUBIN TOTAL 0.2 mg/dL (0.2-1.0); BLOOD UREA NITROGEN,BUN 6.0 mg/dL (7-18); CARBON DIOXIDE,CO2 25.0 mEq/L (21-32); CHLORIDE,CL 104.0 mEq/L (98-107); CREATININE 0.4 mg/dL (0.55-1.02); EST CRCL DRUG DOSING (CG) 114.46 mL/min; ESTIMATED GFR 110.0 mL/min (>60); GLUCOSE RANDOM 105.0 mg/dL (70-99); POTASSIUM,K 3.4 mEq/L (3.5-5.1); PROTEIN TOTAL,TP 7.0 g/dl (6.4-8.2); SODIUM,NA 140.0 mEq/L (136-145); TROPONIN I HIGH SENSITIVITY 8.0 pg/mL (<=51)
== END 2025-01-05 14:50 | disposition home or self-care (01) ==
LOC: JD.ED 12:57
DX: R07.89 Other chest pain (principal); F41.9 Anxiety disorder, unspecified; C34.90 Malignant neoplasm of unspecified part of unspecified bronchus or lung; E78.00 Pure hypercholesterolemia, unspecified; I10 Essential (primary) hypertension; I25.2 Old myocardial infarction; J44.89 Other specified chronic obstructive pulmonary disease; E11.40 Type 2 diabetes mellitus with diabetic neuropathy, unspecified; F17.210 Nicotine dependence, cigarettes, uncomplicated; Z88.6 Allergy status to analgesic agent; Z88.2 Allergy status to sulfonamides; Z91.048 Other nonmedicinal substance allergy status; Z88.0 Allergy status to penicillin; Z79.51 Long term (current) use of inhaled steroids; Z79.899 Other long term (current) drug therapy; Z86.73 Personal history of transient ischemic attack (TIA), and cerebral infarction without residual deficits
CPT/HCPCS: 36415; 71045; 80053; 84484; 85025; 93005; 96374; 96375; 99285; J2060; 93010; 99284; J1171

== ENCOUNTER 2025-01-17 11:53 | Emergency (ER) | payer SELFPAY ==
[2025-01-17 12:59] LABS: BASOPHILS ABSOLUTE AUTO 0.1 K/mm3 (0.0-0.2); BASOPHILS PERCENT AUTO 0.6 % (0.0-1.0); EOSINOPHILS ABSOLUTE AUTO 0.4 K/mm3 (0.0-0.4); EOSINOPHILS PERCENT AUTO 4.4 % (0.0-6.0); IMMATURE GRAN ABSOLUTE AUTO 0.04 K/mm3 (0.00-0.05); IMMATURE GRAN PERCENT AUTO 0.4 % (0.0-0.4); LYMPHOCYTES ABSOLUTE AUTO 1.4 K/mm3 (1.0-4.8); LYMPHOCYTES PERCENT AUTO 14.3 % (24.0-44.0); MEAN PLATELET VOLUME 8.7 fl (9.4-12.3); MONOCYTES ABSOLUTE AUTO 0.5 K/mm3 (0.0-0.8); MONOCYTES PERCENT AUTO 4.7 % (0.0-8.0); NEUTROPHILS ABSOLUTE AUTO 7.3 K/mm3 (1.8-7.7); NEUTROPHILS PERCENT AUTO 75.6 % (41.0-71.0); NRBC ABSOLUTE 0.00 (0.00-0.02); NRBC PERCENT 0.0 % (0.0-0.2); PLATELET COUNT,PLT 428 K/mm3 (150-400); RED BLOOD CELL COUNT 5.01 M/mm3 (4.10-5.30); WHITE BLOOD CELL COUNT,WBC 9.70 K/mm3 (3.9-11.3)
[2025-01-17 13:22] LABS: INR 1.0
[2025-01-17 13:33] LABS: A/G RATIO 0.9 (1-2); ALANINE AMINOTRANSFERASE,ALT 15.0 U/L (14-59); ASPARTATE AMNIOTRANSFERASE,AST 28.0 U/L (15-37); BILIRUBIN TOTAL 0.2 mg/dL (0.2-1.0); BLOOD UREA NITROGEN,BUN 6.0 mg/dL (7-18); CARBON DIOXIDE,CO2 25.0 mEq/L (21-32); CHLORIDE,CL 105.0 mEq/L (98-107); CREATINE KINASE,CK 74.0 U/L (26-192); CREATININE 0.5 mg/dL (0.55-1.02); EST CRCL DRUG DOSING (CG) 91.57 mL/min; ESTIMATED GFR 104.0 mL/min (>60); GLUCOSE RANDOM 103.0 mg/dL (70-99); POTASSIUM,K 4.0 mEq/L (3.5-5.1); PROTEIN TOTAL,TP 6.8 g/dl (6.4-8.2); SODIUM,NA 139.0 mEq/L (136-145); TROPONIN I HIGH SENSITIVITY 5.0 pg/mL (<=51)
== END 2025-01-17 14:10 | disposition left against medical advice (07) ==
LOC: JD.ED 11:53
DX: R07.9 Chest pain, unspecified (principal); R51.9 Headache, unspecified; R42 Dizziness and giddiness; I10 Essential (primary) hypertension; I25.2 Old myocardial infarction; J44.89 Other specified chronic obstructive pulmonary disease; E11.42 Type 2 diabetes mellitus with diabetic polyneuropathy; F17.200 Nicotine dependence, unspecified, uncomplicated; Z86.16 Personal history of COVID-19; Z90.710 Acquired absence of both cervix and uterus; Z88.0 Allergy status to penicillin; Z88.2 Allergy status to sulfonamides; Z88.5 Allergy status to narcotic agent; Z88.6 Allergy status to analgesic agent; Z91.040 Latex allergy status; Z91.048 Other nonmedicinal substance allergy status; Z79.51 Long term (current) use of inhaled steroids; Z79.899 Other long term (current) drug therapy
CPT/HCPCS: 36415; 71045; 71045-26; 80053; 82550; 83690; 83735; 83880; 84484; 85025; 85610; 93005; 99283; 99285

== ENCOUNTER 2025-02-13 14:53 | Emergency (ER) | payer MEDICAID ==
[2025-02-13 17:42] LABS: BASOPHILS ABSOLUTE AUTO 0.1 K/mm3 (0.0-0.2); BASOPHILS PERCENT AUTO 0.7 % (0.0-1.0); EOSINOPHILS ABSOLUTE AUTO 0.4 K/mm3 (0.0-0.4); EOSINOPHILS PERCENT AUTO 5.0 % (0.0-6.0); IMMATURE GRAN ABSOLUTE AUTO 0.02 K/mm3 (0.00-0.05); IMMATURE GRAN PERCENT AUTO 0.2 % (0.0-0.4); LYMPHOCYTES ABSOLUTE AUTO 1.6 K/mm3 (1.0-4.8); LYMPHOCYTES PERCENT AUTO 18.7 % (24.0-44.0); MEAN PLATELET VOLUME 9.3 fl (9.4-12.3); MONOCYTES ABSOLUTE AUTO 0.5 K/mm3 (0.0-0.8); MONOCYTES PERCENT AUTO 5.8 % (0.0-8.0); NEUTROPHILS ABSOLUTE AUTO 6.0 K/mm3 (1.8-7.7); NEUTROPHILS PERCENT AUTO 69.6 % (41.0-71.0); NRBC ABSOLUTE 0.00 (0.00-0.02); NRBC PERCENT 0.0 % (0.0-0.2); PLATELET COUNT,PLT 425 K/mm3 (150-400); RED BLOOD CELL COUNT 5.24 M/mm3 (4.10-5.30); WHITE BLOOD CELL COUNT,WBC 8.66 K/mm3 (3.9-11.3)
[2025-02-13] MEDS: Ondansetron 4 MG/2 ML SDV IVPUSH ONE (17:55)
[2025-02-13 18:11] LABS: A/G RATIO 0.9 (1-2); ALANINE AMINOTRANSFERASE,ALT 18.0 U/L (14-59); ASPARTATE AMNIOTRANSFERASE,AST 34.0 U/L (15-37); BILIRUBIN TOTAL 0.3 mg/dL (0.2-1.0); BLOOD UREA NITROGEN,BUN 9.0 mg/dL (7-18); CARBON DIOXIDE,CO2 29.0 mEq/L (21-32); CHLORIDE,CL 104.0 mEq/L (98-107); CREATINE KINASE,CK 55.0 U/L (26-192); CREATININE 0.5 mg/dL (0.55-1.02); EST CRCL DRUG DOSING (CG) 91.57 mL/min; ESTIMATED GFR 104.0 mL/min (>60); GLUCOSE RANDOM 88.0 mg/dL (70-99); PROTEIN TOTAL,TP 6.9 g/dl (6.4-8.2); SODIUM,NA 142.0 mEq/L (136-145)
[2025-02-13 18:13] LABS: POTASSIUM,K 3.9 mEq/L (3.5-5.1)
== END 2025-02-13 19:00 | disposition home or self-care (01) ==
LOC: JD.ED 14:53
DX: R11.15 Cyclical vomiting syndrome unrelated to migraine (principal); C78.00 Secondary malignant neoplasm of unspecified lung; I25.2 Old myocardial infarction; I10 Essential (primary) hypertension; J44.89 Other specified chronic obstructive pulmonary disease; E11.42 Type 2 diabetes mellitus with diabetic polyneuropathy; F17.200 Nicotine dependence, unspecified, uncomplicated; Z86.16 Personal history of COVID-19; Z90.710 Acquired absence of both cervix and uterus; Z88.0 Allergy status to penicillin; Z88.2 Allergy status to sulfonamides; Z88.5 Allergy status to narcotic agent; Z88.6 Allergy status to analgesic agent; Z91.048 Other nonmedicinal substance allergy status; Z91.040 Latex allergy status; Z79.899 Other long term (current) drug therapy
CPT/HCPCS: 36415; 80053; 82550; 83690; 83735; 85025; 96361; 96374; 99284; J2405; J7030; 99283

== ENCOUNTER 2025-02-21 16:15 | Emergency (ER) | payer MEDICAID ==
[2025-02-21] MEDS ORDERED: Sodium Chloride 0.9% 10 ML Syringe FLUSH PRN (17:04)
[2025-02-21] MEDS: Ondansetron 4 MG/2 ML SDV IVPUSH ONE (17:23)
[2025-02-21 17:33] LABS: BASOPHILS ABSOLUTE AUTO 0.1 K/mm3 (0.0-0.2); BASOPHILS PERCENT AUTO 0.6 % (0.0-1.0); EOSINOPHILS ABSOLUTE AUTO 0.5 K/mm3 (0.0-0.4); EOSINOPHILS PERCENT AUTO 5.8 % (0.0-6.0); IMMATURE GRAN ABSOLUTE AUTO 0.01 K/mm3 (0.00-0.05); IMMATURE GRAN PERCENT AUTO 0.1 % (0.0-0.4); LYMPHOCYTES ABSOLUTE AUTO 1.1 K/mm3 (1.0-4.8); LYMPHOCYTES PERCENT AUTO 13.4 % (24.0-44.0); MEAN PLATELET VOLUME 8.4 fl (9.4-12.3); MONOCYTES ABSOLUTE AUTO 0.3 K/mm3 (0.0-0.8); MONOCYTES PERCENT AUTO 4.0 % (0.0-8.0); NEUTROPHILS ABSOLUTE AUTO 6.2 K/mm3 (1.8-7.7); NEUTROPHILS PERCENT AUTO 76.1 % (41.0-71.0); NRBC ABSOLUTE 0.00 (0.00-0.02); NRBC PERCENT 0.0 % (0.0-0.2); PLATELET COUNT,PLT 431 K/mm3 (150-400); RED BLOOD CELL COUNT 4.87 M/mm3 (4.10-5.30); WHITE BLOOD CELL COUNT,WBC 8.16 K/mm3 (3.9-11.3)
[2025-02-21 17:59] LABS: A/G RATIO 0.9 (1-2); ALANINE AMINOTRANSFERASE,ALT 16 U/L (14-59); ASPARTATE AMNIOTRANSFERASE,AST 29 U/L (15-37); BILIRUBIN TOTAL 0.2 mg/dL (0.2-1.0); BLOOD UREA NITROGEN,BUN 4 mg/dL (7-18); CARBON DIOXIDE,CO2 25 mEq/L (21-32); CHLORIDE,CL 109 mEq/L (98-107); CREATININE 0.4 mg/dL (0.55-1.02); ESTIMATED GFR 110 mL/min (>60); GLUCOSE RANDOM 87 mg/dL (70-99); POTASSIUM,K 4.0 mEq/L (3.5-5.1); PROTEIN TOTAL,TP 6.3 g/dl (6.4-8.2); SODIUM,NA 143 mEq/L (136-145)
== END 2025-02-21 20:00 | disposition home or self-care (01) ==
LOC: JD.ED 16:15
DX: R11.2 Nausea with vomiting, unspecified (principal); R10.84 Generalized abdominal pain; I10 Essential (primary) hypertension; I25.2 Old myocardial infarction; E78.00 Pure hypercholesterolemia, unspecified; J44.89 Other specified chronic obstructive pulmonary disease; E11.42 Type 2 diabetes mellitus with diabetic polyneuropathy; F17.200 Nicotine dependence, unspecified, uncomplicated; Z86.16 Personal history of COVID-19; Z90.710 Acquired absence of both cervix and uterus; Z88.0 Allergy status to penicillin; Z88.2 Allergy status to sulfonamides; Z88.6 Allergy status to analgesic agent; Z88.8 Allergy status to other drugs, medicaments and biological substances; Z91.048 Other nonmedicinal substance allergy status; Z91.040 Latex allergy status; Z79.899 Other long term (current) drug therapy
CPT/HCPCS: 36415; 80053; 83690; 83735; 85025; 96361; 96374; 96375; 99284; J2405; J7030; J1171

== ENCOUNTER 2025-02-27 02:44 | Emergency (ER) | payer MEDICAID ==
[2025-02-27 03:13] LABS: BASOPHILS ABSOLUTE AUTO 0.1 K/mm3 (0.0-0.2); BASOPHILS PERCENT AUTO 0.9 % (0.0-1.0); EOSINOPHILS ABSOLUTE AUTO 0.5 K/mm3 (0.0-0.4); EOSINOPHILS PERCENT AUTO 8.0 % (0.0-6.0); IMMATURE GRAN ABSOLUTE AUTO 0.02 K/mm3 (0.00-0.05); IMMATURE GRAN PERCENT AUTO 0.3 % (0.0-0.4); LYMPHOCYTES ABSOLUTE AUTO 1.4 K/mm3 (1.0-4.8); LYMPHOCYTES PERCENT AUTO 21.3 % (24.0-44.0); MEAN PLATELET VOLUME 8.8 fl (9.4-12.3); MONOCYTES ABSOLUTE AUTO 0.5 K/mm3 (0.0-0.8); MONOCYTES PERCENT AUTO 7.2 % (0.0-8.0); NEUTROPHILS ABSOLUTE AUTO 4.2 K/mm3 (1.8-7.7); NEUTROPHILS PERCENT AUTO 62.3 % (41.0-71.0); NRBC ABSOLUTE 0.00 (0.00-0.02); NRBC PERCENT 0.0 % (0.0-0.2); PLATELET COUNT,PLT 477 K/mm3 (150-400); RED BLOOD CELL COUNT 4.85 M/mm3 (4.10-5.30); WHITE BLOOD CELL COUNT,WBC 6.76 K/mm3 (3.9-11.3)
[2025-02-27] MEDS: Alum Hydrox/Mag Hydrox/Simeth 30 ML, Lidocaine 2% 15 ML PO ONE (03:23)
[2025-02-27 03:39] LABS: A/G RATIO 0.8 (1-2); ALANINE AMINOTRANSFERASE,ALT 32.0 U/L (14-59); ASPARTATE AMNIOTRANSFERASE,AST 38.0 U/L (15-37); BILIRUBIN TOTAL 0.2 mg/dL (0.2-1.0); BLOOD UREA NITROGEN,BUN 7.0 mg/dL (7-18); CARBON DIOXIDE,CO2 30.0 mEq/L (21-32); CHLORIDE,CL 106.0 mEq/L (98-107); CREATININE 0.5 mg/dL (0.55-1.02); EST CRCL DRUG DOSING (CG) 84.34 mL/min; ESTIMATED GFR 104.0 mL/min (>60); GLUCOSE RANDOM 111.0 mg/dL (70-99); POTASSIUM,K 2.8 mEq/L (3.5-5.1); PROTEIN TOTAL,TP 6.1 g/dl (6.4-8.2); SODIUM,NA 142.0 mEq/L (136-145); TROPONIN I HIGH SENSITIVITY 5.0 pg/mL (<=51)
[2025-02-27] MEDS: Potassium Chloride 20 MEQ Tab.ER PO ONE (05:22)
== END 2025-02-27 05:05 | disposition left against medical advice (07) ==
LOC: JD.ED 02:44
DX: R07.9 Chest pain, unspecified (principal); E87.6 Hypokalemia; E78.00 Pure hypercholesterolemia, unspecified; I10 Essential (primary) hypertension; I25.2 Old myocardial infarction; J44.89 Other specified chronic obstructive pulmonary disease; E11.9 Type 2 diabetes mellitus without complications; Z86.16 Personal history of COVID-19; Z90.710 Acquired absence of both cervix and uterus; Z88.6 Allergy status to analgesic agent; Z91.048 Other nonmedicinal substance allergy status; Z88.0 Allergy status to penicillin; Z88.2 Allergy status to sulfonamides; Z88.8 Allergy status to other drugs, medicaments and biological substances; Z91.040 Latex allergy status; Z79.899 Other long term (current) drug therapy; Z53.20 Procedure and treatment not carried out because of patient's decision for unspecified reasons
CPT/HCPCS: 36415; 71045; 71045-26; 80053; 83690; 83735; 84484; 85025; 93005; 99285

== ENCOUNTER 2025-04-01 11:52 | Emergency (ER) | payer MEDICAID ==
[2025-04-01] MEDS: methylPREDNISolone Sodium Succinate 125 MG/2 ML SDV IVPUSH ONE (12:03)
[2025-04-01 12:17] LABS: BASOPHILS ABSOLUTE AUTO 0.1 K/mm3 (0.0-0.2); BASOPHILS PERCENT AUTO 0.9 % (0.0-1.0); EOSINOPHILS ABSOLUTE AUTO 0.7 K/mm3 (0.0-0.4); EOSINOPHILS PERCENT AUTO 8.2 % (0.0-6.0); IMMATURE GRAN ABSOLUTE AUTO 0.03 K/mm3 (0.00-0.05); IMMATURE GRAN PERCENT AUTO 0.3 % (0.0-0.4); LYMPHOCYTES ABSOLUTE AUTO 1.7 K/mm3 (1.0-4.8); LYMPHOCYTES PERCENT AUTO 19.1 % (24.0-44.0); MEAN PLATELET VOLUME 8.8 fl (9.4-12.3); MONOCYTES ABSOLUTE AUTO 0.6 K/mm3 (0.0-0.8); MONOCYTES PERCENT AUTO 6.4 % (0.0-8.0); NEUTROPHILS ABSOLUTE AUTO 5.7 K/mm3 (1.8-7.7); NEUTROPHILS PERCENT AUTO 65.1 % (41.0-71.0); NRBC ABSOLUTE 0.00 (0.00-0.02); NRBC PERCENT 0.0 % (0.0-0.2); PLATELET COUNT,PLT 482 K/mm3 (150-400); RED BLOOD CELL COUNT 5.08 M/mm3 (4.10-5.30); WHITE BLOOD CELL COUNT,WBC 8.69 K/mm3 (3.9-11.3)
[2025-04-01 12:25] LABS: BASE EXCESS VENOUS -0.2 (-4.0-2.0); BICARBONATE,VENOUS 22.8 meq/L (22-26); O2 SATURATION VENOUS 98.5; PCO2 VENOUS 32.0 mmHg (41-51); PH,VENOUS 7.46 (7.30-7.40); PO2 VENOUS 88.0 mmHG (40-80)
[2025-04-01] MEDS: Sodium Chloride 0.9% 10 ML Syringe FLUSH PRN (12:43)
[2025-04-01] MEDS: Iopamidol 612 MG/ML 100 ML Bottle IVPUSH ONE (12:43)
[2025-04-01 12:53] LABS: A/G RATIO 0.8 (1-2); ALANINE AMINOTRANSFERASE,ALT 11.0 U/L (14-59); ASPARTATE AMNIOTRANSFERASE,AST 31.0 U/L (15-37); BILIRUBIN TOTAL 0.2 mg/dL (0.2-1.0); BLOOD UREA NITROGEN,BUN 8.0 mg/dL (7-18); CARBON DIOXIDE,CO2 24.0 mEq/L (21-32); CHLORIDE,CL 107.0 mEq/L (98-107); CREATININE 0.6 mg/dL (0.55-1.02); EST CRCL DRUG DOSING (CG) 76.31 mL/min; ESTIMATED GFR 100.0 mL/min (>60); GLUCOSE RANDOM 104.0 mg/dL (70-99); POTASSIUM,K 3.5 mEq/L (3.5-5.1); PROTEIN TOTAL,TP 6.4 g/dl (6.4-8.2); SODIUM,NA 141.0 mEq/L (136-145); TROPONIN I HIGH SENSITIVITY 4.0 pg/mL (<=51)
[2025-04-01] MEDS: Azithromycin 200 MG/5 ML Susp 30 ML Bottle PO ONE (14:20)
== END 2025-04-01 15:19 | disposition home or self-care (01) ==
LOC: JD.ED 11:52
DX: J44.1 Chronic obstructive pulmonary disease with (acute) exacerbation (principal); I10 Essential (primary) hypertension; I25.2 Old myocardial infarction; E11.40 Type 2 diabetes mellitus with diabetic neuropathy, unspecified; Z88.0 Allergy status to penicillin; Z91.040 Latex allergy status; Z88.2 Allergy status to sulfonamides; Z88.6 Allergy status to analgesic agent; Z88.8 Allergy status to other drugs, medicaments and biological substances; Z79.899 Other long term (current) drug therapy; Z79.891 Long term (current) use of opiate analgesic; Z86.16 Personal history of COVID-19; Z90.710 Acquired absence of both cervix and uterus
CPT/HCPCS: 36415; 71045; 71260; 74177; 80053; 82803; 83735; 83880; 84484; 85025; 93005; 96374; 99285; A9270; J2919; J3535; Q0144; Q9967; 93010; 99284

== ENCOUNTER 2025-04-07 08:51 | Emergency (ER) | payer MEDICAID, MEDICARE ==
[2025-04-07 09:30] LABS: BASOPHILS ABSOLUTE AUTO 0.1 K/mm3 (0.0-0.2); BASOPHILS PERCENT AUTO 1.1 % (0.0-1.0); EOSINOPHILS ABSOLUTE AUTO 1.0 K/mm3 (0.0-0.4); EOSINOPHILS PERCENT AUTO 8.5 % (0.0-6.0); IMMATURE GRAN ABSOLUTE AUTO 0.06 K/mm3 (0.00-0.05); IMMATURE GRAN PERCENT AUTO 0.5 % (0.0-0.4); LYMPHOCYTES ABSOLUTE AUTO 2.2 K/mm3 (1.0-4.8); LYMPHOCYTES PERCENT AUTO 18.8 % (24.0-44.0); MEAN PLATELET VOLUME 8.9 fl (9.4-12.3); MONOCYTES ABSOLUTE AUTO 0.6 K/mm3 (0.0-0.8); MONOCYTES PERCENT AUTO 4.8 % (0.0-8.0); NEUTROPHILS ABSOLUTE AUTO 7.8 K/mm3 (1.8-7.7); NEUTROPHILS PERCENT AUTO 66.3 % (41.0-71.0); NRBC ABSOLUTE 0.00 (0.00-0.02); NRBC PERCENT 0.0 % (0.0-0.2); RED BLOOD CELL COUNT 5.78 M/mm3 (4.10-5.30); WHITE BLOOD CELL COUNT,WBC 11.81 K/mm3 (3.9-11.3)
[2025-04-07 09:45] LABS: PLATELET COUNT,PLT 568 K/mm3 (150-400)
[2025-04-07 10:02] LABS: A/G RATIO 0.8 (1-2); ALANINE AMINOTRANSFERASE,ALT 14 U/L (14-59); ASPARTATE AMNIOTRANSFERASE,AST 36 U/L (15-37); BILIRUBIN TOTAL 0.3 mg/dL (0.2-1.0); BLOOD UREA NITROGEN,BUN 8 mg/dL (7-18); CARBON DIOXIDE,CO2 26 mEq/L (21-32); CHLORIDE,CL 104 mEq/L (98-107); CREATININE 0.5 mg/dL (0.55-1.02); ESTIMATED GFR 104 mL/min (>60); GLUCOSE RANDOM 110 mg/dL (70-99); POTASSIUM,K 4.0 mEq/L (3.5-5.1); PROTEIN TOTAL,TP 7.4 g/dl (6.4-8.2); SODIUM,NA 141 mEq/L (136-145); TROPONIN I HIGH SENSITIVITY 9 pg/mL (<=51)
[2025-04-07] MEDS: Sodium Chloride 0.9% 10 ML Syringe FLUSH PRN (12:31)
== END 2025-04-07 13:30 | disposition home or self-care (01) ==
LOC: JD.ED 08:51
DX: M54.6 Pain in thoracic spine (principal); R06.02 Shortness of breath; I10 Essential (primary) hypertension; J45.909 Unspecified asthma, uncomplicated; Z79.82 Long term (current) use of aspirin; Z88.8 Allergy status to other drugs, medicaments and biological substances; E11.40 Type 2 diabetes mellitus with diabetic neuropathy, unspecified; Z86.16 Personal history of COVID-19; Z90.710 Acquired absence of both cervix and uterus
CPT/HCPCS: 36415; 71045; 80053; 84484; 85025; 86140; 94640; 96374; 96375; 99285; J2270; J7030; J7620; 99284; A9270-GY; J1171

== ENCOUNTER 2025-04-07 14:51 | Emergency (ER) | payer MEDICAID | END 2025-04-07 16:53 | disposition home or self-care (01) | LOC: JD.ED 14:51 | DX: R11.2 Nausea with vomiting, unspecified (principal); M54.6 Pain in thoracic spine; I10 Essential (primary) hypertension; I25.2 Old myocardial infarction; E78.00 Pure hypercholesterolemia, unspecified; J44.9 Chronic obstructive pulmonary disease, unspecified; E11.40 Type 2 diabetes mellitus with diabetic neuropathy, unspecified; Z86.73 Personal history of transient ischemic attack (TIA), and cerebral infarction without residual deficits; Z86.16 Personal history of COVID-19; Z79.899 Other long term (current) drug therapy; Z88.5 Allergy status to narcotic agent; Z88.0 Allergy status to penicillin; Z88.2 Allergy status to sulfonamides; Z91.040 Latex allergy status; Z91.048 Other nonmedicinal substance allergy status; Z85.118 Personal history of other malignant neoplasm of bronchus and lung | CPT/HCPCS: 99284; Q0169; 99283 ==

== ENCOUNTER 2025-04-14 09:40 | Emergency (ER) | payer MEDICAID ==
[2025-04-14 10:15] LABS: BASOPHILS ABSOLUTE AUTO 0.1 K/mm3 (0.0-0.2); BASOPHILS PERCENT AUTO 1.1 % (0.0-1.0); EOSINOPHILS ABSOLUTE AUTO 0.7 K/mm3 (0.0-0.4); EOSINOPHILS PERCENT AUTO 7.0 % (0.0-6.0); IMMATURE GRAN ABSOLUTE AUTO 0.02 K/mm3 (0.00-0.05); IMMATURE GRAN PERCENT AUTO 0.2 % (0.0-0.4); LYMPHOCYTES ABSOLUTE AUTO 1.7 K/mm3 (1.0-4.8); LYMPHOCYTES PERCENT AUTO 16.6 % (24.0-44.0); MEAN PLATELET VOLUME 8.8 fl (9.4-12.3); MONOCYTES ABSOLUTE AUTO 0.7 K/mm3 (0.0-0.8); MONOCYTES PERCENT AUTO 6.4 % (0.0-8.0); NEUTROPHILS ABSOLUTE AUTO 7.1 K/mm3 (1.8-7.7); NEUTROPHILS PERCENT AUTO 68.7 % (41.0-71.0); NRBC ABSOLUTE 0.00 (0.00-0.02); NRBC PERCENT 0.0 % (0.0-0.2); PLATELET COUNT,PLT 443 K/mm3 (150-400); RED BLOOD CELL COUNT 5.21 M/mm3 (4.10-5.30); WHITE BLOOD CELL COUNT,WBC 10.38 K/mm3 (3.9-11.3)
[2025-04-14 10:46] LABS: A/G RATIO 0.9 (1-2); ALANINE AMINOTRANSFERASE,ALT 10.0 U/L (14-59); ASPARTATE AMNIOTRANSFERASE,AST 33.0 U/L (15-37); BILIRUBIN TOTAL 0.2 mg/dL (0.2-1.0); BLOOD UREA NITROGEN,BUN 8.0 mg/dL (7-18); CARBON DIOXIDE,CO2 24.0 mEq/L (21-32); CHLORIDE,CL 106.0 mEq/L (98-107); CREATININE 0.6 mg/dL (0.55-1.02); EST CRCL DRUG DOSING (CG) 74.97 mL/min; ESTIMATED GFR 100.0 mL/min (>60); GLUCOSE RANDOM 98.0 mg/dL (70-99); POTASSIUM,K 3.6 mEq/L (3.5-5.1); PROTEIN TOTAL,TP 6.7 g/dl (6.4-8.2); SODIUM,NA 142.0 mEq/L (136-145); TROPONIN I HIGH SENSITIVITY 5.0 pg/mL (<=51)
[2025-04-14 13:04] LABS: APPEARANCE,URINE CLOUDY (Clear); GLUCOSE,URINE NEGATIVE (Negative); OCCULT BLOOD,URINE NEGATIVE (Negative)
[2025-04-14] MEDS: Acetaminophen/HYDROcodone 325-10 MG Tab PO ONE (13:15)
[2025-04-14] MEDS: Nitrofurantoin Monohydrate/Macrocrystalline 100 MG Cap PO ONE (13:50)
== END 2025-04-14 14:20 | disposition home or self-care (01) ==
LOC: JD.ED 09:40
DX: N30.00 Acute cystitis without hematuria (principal); I10 Essential (primary) hypertension; I25.2 Old myocardial infarction; E78.00 Pure hypercholesterolemia, unspecified; J44.9 Chronic obstructive pulmonary disease, unspecified; E11.40 Type 2 diabetes mellitus with diabetic neuropathy, unspecified; Z86.16 Personal history of COVID-19; Z86.73 Personal history of transient ischemic attack (TIA), and cerebral infarction without residual deficits; Z90.710 Acquired absence of both cervix and uterus; Z79.899 Other long term (current) drug therapy; Z88.0 Allergy status to penicillin; Z88.2 Allergy status to sulfonamides; Z88.5 Allergy status to narcotic agent; Z91.040 Latex allergy status; Z91.048 Other nonmedicinal substance allergy status
CPT/HCPCS: 36415; 71045; 80053; 81001; 83605; 83735; 83880; 84484; 85025; 85379; 86140; 87086; 93005; 99285; A9270; 87088; 87186; 93010; 99284

== ENCOUNTER 2025-04-14 21:53 | Emergency (ER) | payer MEDICAID ==
[2025-04-14 22:17] LABS: BASOPHILS ABSOLUTE AUTO 0.1 K/mm3 (0.0-0.2); BASOPHILS PERCENT AUTO 1.2 % (0.0-1.0); EOSINOPHILS ABSOLUTE AUTO 0.6 K/mm3 (0.0-0.4); EOSINOPHILS PERCENT AUTO 6.5 % (0.0-6.0); IMMATURE GRAN ABSOLUTE AUTO 0.04 K/mm3 (0.00-0.05); IMMATURE GRAN PERCENT AUTO 0.4 % (0.0-0.4); LYMPHOCYTES ABSOLUTE AUTO 1.5 K/mm3 (1.0-4.8); LYMPHOCYTES PERCENT AUTO 15.2 % (24.0-44.0); MEAN PLATELET VOLUME 8.9 fl (9.4-12.3); MONOCYTES ABSOLUTE AUTO 0.6 K/mm3 (0.0-0.8); MONOCYTES PERCENT AUTO 5.8 % (0.0-8.0); NEUTROPHILS ABSOLUTE AUTO 7.0 K/mm3 (1.8-7.7); NEUTROPHILS PERCENT AUTO 70.9 % (41.0-71.0); NRBC ABSOLUTE 0.00 (0.00-0.02); NRBC PERCENT 0.0 % (0.0-0.2); PLATELET COUNT,PLT 395 K/mm3 (150-400); RED BLOOD CELL COUNT 5.11 M/mm3 (4.10-5.30); WHITE BLOOD CELL COUNT,WBC 9.90 K/mm3 (3.9-11.3)
[2025-04-14 22:48] LABS: A/G RATIO 0.9 (1-2); ASPARTATE AMNIOTRANSFERASE,AST 32.0 U/L (15-37); BILIRUBIN TOTAL 0.3 mg/dL (0.2-1.0); BLOOD UREA NITROGEN,BUN 8.0 mg/dL (7-18); CARBON DIOXIDE,CO2 24.0 mEq/L (21-32); CHLORIDE,CL 103.0 mEq/L (98-107); CREATININE 0.5 mg/dL (0.55-1.02); EST CRCL DRUG DOSING (CG) 88.36 mL/min; ESTIMATED GFR 104.0 mL/min (>60); GLUCOSE RANDOM 113.0 mg/dL (70-99); PROTEIN TOTAL,TP 6.7 g/dl (6.4-8.2); SODIUM,NA 139.0 mEq/L (136-145); TROPONIN I HIGH SENSITIVITY 5.0 pg/mL (<=51)
[2025-04-14 22:53] LABS: POTASSIUM,K 3.3 mEq/L (3.5-5.1)
[2025-04-14 23:14] LABS: ALANINE AMINOTRANSFERASE,ALT 11.0 U/L (14-59)
[2025-04-15] MEDS: Sodium Chloride 0.9% 10 ML Syringe FLUSH PRN
== END 2025-04-15 01:05 | disposition home or self-care (01) ==
LOC: JD.ED 21:53
DX: R06.02 Shortness of breath (principal); C34.90 Malignant neoplasm of unspecified part of unspecified bronchus or lung; G89.29 Other chronic pain; M54.6 Pain in thoracic spine; I10 Essential (primary) hypertension; E78.00 Pure hypercholesterolemia, unspecified; I25.2 Old myocardial infarction; J44.89 Other specified chronic obstructive pulmonary disease; E11.9 Type 2 diabetes mellitus without complications; F17.200 Nicotine dependence, unspecified, uncomplicated; Z86.16 Personal history of COVID-19; Z91.048 Other nonmedicinal substance allergy status; Z88.6 Allergy status to analgesic agent; Z88.8 Allergy status to other drugs, medicaments and biological substances; Z88.0 Allergy status to penicillin; Z91.040 Latex allergy status; Z88.2 Allergy status to sulfonamides; Z79.899 Other long term (current) drug therapy
CPT/HCPCS: 36415; 71045; 71045-26; 80053; 84484; 85025; 93005; 96374; 96376; 99285-25; J1171

== ENCOUNTER 2025-04-15 07:36 | Emergency (ER) | payer MEDICAID ==
[2025-04-15] MEDS: Ondansetron 4 MG Tab.DIS PO ONE (08:44)
== END 2025-04-15 10:50 | disposition home or self-care (01) ==
LOC: JD.ED 07:36
DX: C34.90 Malignant neoplasm of unspecified part of unspecified bronchus or lung (principal); F17.200 Nicotine dependence, unspecified, uncomplicated; E78.00 Pure hypercholesterolemia, unspecified; I10 Essential (primary) hypertension; J44.89 Other specified chronic obstructive pulmonary disease; E11.40 Type 2 diabetes mellitus with diabetic neuropathy, unspecified; Z79.82 Long term (current) use of aspirin; Z91.048 Other nonmedicinal substance allergy status; Z88.2 Allergy status to sulfonamides; Z88.0 Allergy status to penicillin; Z88.5 Allergy status to narcotic agent; Z88.8 Allergy status to other drugs, medicaments and biological substances; Z91.040 Latex allergy status; Z79.51 Long term (current) use of inhaled steroids; Z79.899 Other long term (current) drug therapy; Z86.16 Personal history of COVID-19; Z90.89 Acquired absence of other organs
CPT/HCPCS: 99283; A9270; 99284

== ENCOUNTER 2025-04-17 10:01 | Emergency (ER) | payer MEDICAID ==
[2025-04-17] MEDS ORDERED: Sodium Chloride 0.9% 10 ML Syringe FLUSH PRN (10:53)
[2025-04-17 11:43] LABS: BASOPHILS ABSOLUTE AUTO 0.1 K/mm3 (0.0-0.2); BASOPHILS PERCENT AUTO 0.9 % (0.0-1.0); EOSINOPHILS ABSOLUTE AUTO 0.6 K/mm3 (0.0-0.4); EOSINOPHILS PERCENT AUTO 6.7 % (0.0-6.0); IMMATURE GRAN ABSOLUTE AUTO 0.04 K/mm3 (0.00-0.05); IMMATURE GRAN PERCENT AUTO 0.4 % (0.0-0.4); LYMPHOCYTES ABSOLUTE AUTO 1.8 K/mm3 (1.0-4.8); LYMPHOCYTES PERCENT AUTO 19.8 % (24.0-44.0); MEAN PLATELET VOLUME 8.9 fl (9.4-12.3); MONOCYTES ABSOLUTE AUTO 0.7 K/mm3 (0.0-0.8); MONOCYTES PERCENT AUTO 7.3 % (0.0-8.0); NEUTROPHILS ABSOLUTE AUTO 5.8 K/mm3 (1.8-7.7); NEUTROPHILS PERCENT AUTO 64.9 % (41.0-71.0); NRBC ABSOLUTE 0.00 (0.00-0.02); NRBC PERCENT 0.0 % (0.0-0.2); PLATELET COUNT,PLT 407 K/mm3 (150-400); RED BLOOD CELL COUNT 5.52 M/mm3 (4.10-5.30); WHITE BLOOD CELL COUNT,WBC 8.91 K/mm3 (3.9-11.3)
[2025-04-17 12:03] LABS: A/G RATIO 0.9 (1-2); ALANINE AMINOTRANSFERASE,ALT 11.0 U/L (14-59); ASPARTATE AMNIOTRANSFERASE,AST 27.0 U/L (15-37); BILIRUBIN TOTAL 0.3 mg/dL (0.2-1.0); BLOOD UREA NITROGEN,BUN 6.0 mg/dL (7-18); CARBON DIOXIDE,CO2 26.0 mEq/L (21-32); CHLORIDE,CL 102.0 mEq/L (98-107); CREATININE 0.6 mg/dL (0.55-1.02); EST CRCL DRUG DOSING (CG) 73.63 mL/min; ESTIMATED GFR 100.0 mL/min (>60); GLUCOSE RANDOM 82.0 mg/dL (70-99); POTASSIUM,K 3.7 mEq/L (3.5-5.1); PROTEIN TOTAL,TP 7.2 g/dl (6.4-8.2); SODIUM,NA 140.0 mEq/L (136-145)
[2025-04-17] MEDS: Nitrofurantoin Monohydrate/Macrocrystalline 100 MG Cap PO ONE (13:58)
== END 2025-04-17 15:50 | disposition home or self-care (01) ==
LOC: JD.ED 10:01
DX: J43.2 Centrilobular emphysema (principal); J96.10 Chronic respiratory failure, unspecified whether with hypoxia or hypercapnia; C34.90 Malignant neoplasm of unspecified part of unspecified bronchus or lung; I10 Essential (primary) hypertension; E78.00 Pure hypercholesterolemia, unspecified; J44.89 Other specified chronic obstructive pulmonary disease; E11.42 Type 2 diabetes mellitus with diabetic polyneuropathy; Z86.16 Personal history of COVID-19; Z90.710 Acquired absence of both cervix and uterus; Z88.0 Allergy status to penicillin; Z88.2 Allergy status to sulfonamides; Z88.6 Allergy status to analgesic agent; Z88.5 Allergy status to narcotic agent; Z91.048 Other nonmedicinal substance allergy status; Z91.040 Latex allergy status; Z79.899 Other long term (current) drug therapy
CPT/HCPCS: 36415; 80053; 85025; 99284; A9270